=== PATIENT | male | born 1945 | race Caucasian/White ===

== ENCOUNTER 2018-06-21 07:05 | Day surgery (SDC) | payer MEDICARE ==
[2018-06-20 09:37] VITALS: BMI 29.8
[~2018-06-21 07:05] MED LIST: LACTATED RINGERS 1,000 ML IV SCH; LIDOCAINE 1% 20 ML VIAL (10MG/ML) FOR IV START INTRADERMA PRN
[2018-06-21 07:51] VITALS: RESP 18; TEMP 97.8
[2018-06-21] MEDS ORDERED: LACTATED RINGERS 1,000 ML IV ONE (07:51)
[2018-06-21 07:59] LABS: Glucose,Whole Blood 123 mg/dL (75-99)
[2018-06-21] MEDS ORDERED: PROPOFOL 10 MG/ML 20 ML VIAL IV ONE (08:32)
[2018-06-21] MEDS ORDERED: LIDOCAINE 1% INJ 10MG/ML (20 ML MDV) ONE (08:32)
--- NOTE | 2018-06-21 08:53 | P.PCN ---
Date of Procedure: 06/21/18 Procedure(s) Performed: Procedure: Total colonoscopy. Preoperative diagnosis: Screening for neoplasia. Postoperative diagnosis: Mild sigmoid diverticulosis with no evidence of acute diverticulitis, pictures, polyps or cancer. Preparation: HalfLytely prep. Sedation: Was provided by anesthesia. Brief clinical history: The patient is a 72-year-old male who is scheduled for this evaluation for screening for neoplasia age being his risk factor. He had a prior exam in 2008. No family history of colon cancer. The patient has no abdominal complaints, bleeding or anemia. Procedure: With the patient on his left lateral decubitus position and after informed consent and adequate sedation, the perianal area was inspected and it did not show any fissures or fistulas. There were no masses felt on digital rectal examination. The Olympus CFH 190L video colonoscope was then inserted in the rectum in the usual fashion and advanced to the cecum. There were few diverticular orifices seen scattered in the sigmoid with no evidence of acute diverticulitis or strictures. The mucosa appeared healthy. No polyps or tumors were seen or other pathology. I retroflexed the endoscope in the rectum before the endoscope was withdrawn. The patient tolerated the procedure well. Plan: The patient was reassured. Discussed dietary measures. He will follow up with you as planned. At his age, I did not recommend repeat exam in 10 years. This can be decided based on his overall health at that time. He will discuss that with you.
[2018-06-21 09:14] VITALS: BP 136/80; PULSE 54
== END 2018-06-21 09:24 | disposition home or self-care (01) ==
LOC: ORWHC2ENDO 07:05
DX: Z12.11 Encounter for screening for malignant neoplasm of colon (principal); K57.30 Diverticulosis of large intestine without perforation or abscess without bleeding; E11.9 Type 2 diabetes mellitus without complications; F41.9 Anxiety disorder, unspecified; F32.9 Major depressive disorder, single episode, unspecified; Z88.0 Allergy status to penicillin; Z79.899 Other long term (current) drug therapy; Z79.4 Long term (current) use of insulin; Z88.4 Allergy status to anesthetic agent
CPT/HCPCS: J2001; J2704; G0121; 45378

== ENCOUNTER 2018-12-31 11:43 | Emergency (ER) | payer MEDICARE ==
[2018-12-31 11:55] VITALS: RESP 18
[2018-12-31 12:01] LABS: Glucose,Whole Blood 365 mg/dL (75-99)
[2018-12-31] MEDS ORDERED: SODIUM CHLORIDE 0.9% 500 ML 500 ML IV STA (12:12)
[2018-12-31] MEDS ORDERED: SODIUM CHLORIDE 0.9% 1,000 ML IV STA (12:12)
[2018-12-31] MEDS ORDERED: INSULIN REGULAR 100 UNIT/ML VIAL IV ONE ×2 (12:13→12:58)
[2018-12-31 12:45] LABS: Appearance,Urine Clear (Clear); Bilirubin,Urine Negative (Negative); Blood,Urine Negative (Negative); Color,Urine Yellow; Glucose,Urine (UA) 4+ (Negative); Ketones,Urine Negative (Negative); Leukocyte Esterase,Urine Negative (Negative); Nitrite,Urine Negative (Negative); PH, Urine 5.5 (5.0-8.0); Protein,Urine Negative (Negative); Specific Gravity,Urine 1.023 (1.001-1.035); Urobilinogen,Urine <2.0 mg/dL (<2.0)
[2018-12-31 12:58] LABS: Glucose,Whole Blood 351 mg/dL (75-99)
[2018-12-31 13:04] LABS: Basophils % (A) 0 %; Eosinophils % (A) 1 %; HCT 43.7 % (39.0-53.0); HGB 15.2 gm/dL (13.0-17.5); Lymphocytes % (A) 13 %; MCHC 34.9 g/dL (31.0-37.0); MCV 88.8 fL (80.0-100.0); Mean Platelet Volume 6.6; Monocytes # (A) 0.4 k/uL (0-1.0); Monocytes % (A) 5 %; Neutrophils % (A) 80 %; Platelet Count 122 k/uL (150-450); RBC 4.92 m/uL (4.30-5.90); RDW 13.1 % (11.5-15.5); WBC 7.5 k/uL (3.8-10.6)
--- NOTE | 2018-12-31 13:05 | ED ---
General Adult HPI - General Source: patient, RN notes reviewed Mode of arrival: ambulatory Limitations: no limitations <Henok Bradshaw - Last Filed: 12/31/18 13:49> <Haresh Lennon - Last Filed: 12/31/18 16:34> - General Chief complaint: Recheck/Abnormal Lab/Rx Stated complaint: high blood sugar Time Seen by Provider: 12/31/18 11:58 - History of Present Illness Initial comments: This a 73-year-old male presents emergency Department chief complaint of hyperglycemia. Patient states that he was started on steroids by his PCPs office on Monday. Patient states that his blood sugar has been elevated higher than usual. He states it's been anywhere from 200-400. Patient states he did eat breakfast is want to cause medications as normal. He denies any specific complaints other than he felt slightly lightheaded earlier but that all resolved. Denies chest pain, shortness breath, nausea, vomiting, diarrhea c onstipation. No recent fevers chills (Henok Bradshaw) - Related Data Home Medications Medication Instructions Recorded Confirmed Escitalopram [Lexapro] 10 mg PO HS 06/20/18 06/20/18 Insulin Glargine [Lantus] 9 unit SQ HS 06/20/18 06/20/18 Multivitamins, Thera [Multivitamin 1 tab PO DAILY 06/20/18 06/20/18 (formulary)] Pioglitazone [Actos] 15 mg PO 1200 06/20/18 06/20/18 Repaglinide [Prandin] 1 mg PO AC-BID 06/20/18 06/20/18 Allergies Allergy/AdvReac Type Severity Reaction Status Date / Time amoxicillin Allergy Itching Verified 06/20/18 09:08 Review of Systems ROS Other: All systems not noted in ROS Statement are negative. <Henok Bradshaw - Last Filed: 12/31/18 13:49> ROS Other: All systems not noted in ROS Statement are negative. <Haresh Lennon - Last Filed: 12/31/18 16:34> ROS Statement: Those systems with pertinent positive or pertinent negative responses have been documented in the HPI. Past Medical History Past Medical History: Cancer, Diabetes Mellitus, Hyperlipidemia, Syncope Additional Past Medical History / Comment(s): Skin cancer- face, back and arm. States SOB when lying flat. History of Any Multi-Drug Resistant Organisms: None Reported Past Surgical History: Orthopedic Surgery, Tonsillectomy Additional Past Surgical History / Comment(s): R finger surgery. Cataract surgery. Additional Past Anesthesia/Blood Transfusion Reaction / Comment(s): States does not take much anesthesia to put me to sleep. Past Psychological History: Anxiety Smoking Status: Never smoker Past Alcohol Use History: None Reported Past Drug Use History: None Reported - Past Family History Father Family Medical History: Cancer Additional Family Medical History / Comment(s): Brain Sister(s) Family Medical History: Cancer Additional Family Medical History / Comment(s): Thyroid <Henok Bradshaw - Last Filed: 12/31/18 13:49> General Exam Limitations: no limitations General appearance: alert, in no apparent distress Head exam: Present: atraumatic, normocephalic, normal inspection Eye exam: Present: normal appearance, PERRL, EOMI. Absent: scleral icterus, conjunctival injection, periorbital swelling ENT exam: Present: normal exam, mucous membranes moist Neck exam: Present: normal inspection, full ROM. Absent: tenderness, meningismus, lymphadenopathy Respiratory exam: Present: normal lung sounds bilaterally. Absent: respiratory distress, wheezes, rales, rhonchi, stridor Cardiovascular Exam: Present: regular rate, normal rhythm, normal heart sounds. Absent: systolic murmur, diastolic murmur, rubs, gallop, clicks GI/Abdominal exam: Present: soft, normal bowel sounds. Absent: distended, tenderness, guarding, rebound, rigid Neurological exam: Present: alert, oriented X3, CN II-XII intact, reflexes normal. Absent: motor sensory deficit Skin exam: Present: warm, dry, intact, normal color. Absent: rash <Henok Bradshaw - Last Filed: 12/31/18 13:49> Course <Haresh Lennon - Last Filed: 12/31/18 16:34> Vital Signs 12/31/18 12/31/18 11:53 14:05 Temperature 97.6 F 98.4 F Pulse Rate 72 58 L Respiratory 18 18 Rate Blood Pressure 120/64 107/67 O2 Sat by Pulse 94 L 97 Oximetry - Reevaluation(s) Reevaluation #1: 12/31/18 16:33 ET tube.: Persistent evaluation this case and do agree with the assessment and plan. Patient did have hyperglycemia and has corrected. (Haresh Lennon) Medical Decision Making - Lab Data Result diagrams: 12/31/18 12:20 12/31/18 12:20 <Henok Bradshaw - Last Filed: 12/31/18 13:49> - Lab Data Result diagrams: 12/31/18 12:20 12/31/18 12:20 <Haresh Lennon - Last Filed: 12/31/18 16:34> - Medical Decision Making Patient was sugar was almost 400 in the emergency department. Patient was given IV insulin, IV fluids and electrolytes were checked with no acute findings. Urinalysis shows 4+ glucose. Patient has hyperglycemia related to steroid use and dietary reasons. We discussed a very Strict diabetic diet. Return parameters were discussed. (Henok Bradshaw) - Lab Data Lab Results 12/31/18 12/31/18 12/31/18 Range/Units 11:52 12:20 12:20 WBC 7.5 (3.8-10.6) k/uL RBC 4.92 (4.30-5.90) m/uL Hgb 15.2 (13.0-17.5) gm/dL Hct 43.7 (39.0-53.0) % MCV 88.8 (80.0-100.0) fL MCH 31.0 (25.0-35.0) pg MCHC 34.9 (31.0-37.0) g/dL RDW 13.1 (11.5-15.5) % Plt Count 122 L (150-450) k/uL Neutrophils % 80 % Lymphocytes % 13 % Monocytes % 5 % Eosinophils % 1 % Basophils % 0 % Neutrophils # 6.0 (1.3-7.7) k/uL Lymphocytes # 1.0 (1.0-4.8) k/uL Monocytes # 0.4 (0-1.0) k/uL Eosinophils # 0.0 (0-0.7) k/uL Basophils # 0.0 (0-0.2) k/uL Sodium 137 (137-145) mmol/L Potassium 4.7 (3.5-5.1) mmol/L Chloride 102 (98-107) mmol/L Carbon Dioxide 23 (22-30) mmol/L Anion Gap 12 mmol/L BUN 22 H (9-20) mg/dL Creatinine 0.77 (0.66-1.25) mg/dL Est GFR (CKD-EPI)AfAm >90 (>60 ml/min/1.73 sqM) Est GFR (CKD-EPI)NonAf 89 (>60 ml/min/1.73 sqM) Glucose 393 H (74-99) mg/dL POC Glucose (mg/dL) 365 H (75-99) mg/dL POC Glu Aboriginal Education Teacher ID Ann Robles Calcium 9.9 (8.4-10.2) mg/dL Total Bilirubin 0.6 (0.2-1.3) mg/dL AST 32 (17-59) U/L ALT 26 (21-72) U/L Alkaline Phosphatase 58 (38-126) U/L Total Protein 7.4 (6.3-8.2) g/dL Albumin 4.2 (3.5-5.0) g/dL Lipase 203 (23-300) U/L Urine Color Urine Appearance (Clear) Urine pH (5.0-8.0) Ur Specific [place] (1.001-1.035) Urine Protein (Negative) Urine Glucose (UA) (Negative) Urine Ketones (Negative) Urine Blood (Negative) Urine Nitrite (Negative) Urine Bilirubin (Negative) Urine Urobilinogen (<2.0) mg/dL Ur Leukocyte Esterase (Negative) Acetone, Qual (Negative) 12/31/18 12/31/18 12/31/18 Range/Units 12:20 12:24 12:55 WBC (3.8-10.6) k/uL RBC (4.30-5.90) m/uL Hgb (13.0-17.5) gm/dL Hct (39.0-53.0) % MCV (80.0-100.0) fL MCH (25.0-35.0) pg MCHC (31.0-37.0) g/dL RDW (11.5-15.5) % Plt Count (150-450) k/uL Neutrophils % % Lymphocytes % % Monocytes % % Eosinophils % % Basophils % % Neutrophils # (1.3-7.7) k/uL Lymphocytes # (1.0-4.8) k/uL Monocytes # (0-1.0) k/uL Eosinophils # (0-0.7) k/uL Basophils # (0-0.2) k/uL Sodium (137-145) mmol/L Potassium (3.5-5.1) mmol/L Chloride (98-107) mmol/L Carbon Dioxide (22-30) mmol/L Anion Gap mmol/L BUN (9-20) mg/dL Creatinine (0.66-1.25) mg/dL Est GFR (CKD-EPI)AfAm (>60 ml/min/1.73 sqM) Est GFR (CKD-EPI)NonAf (>60 ml/min/1.73 sqM) Glucose (74-99) mg/dL POC Glucose (mg/dL) 351 H (75-99) mg/dL POC Glu Aboriginal Education Teacher ID Barber Martinez Calcium (8.4-10.2) mg/dL Total Bilirubin (0.2-1.3) mg/dL AST (17-59) U/L ALT (21-72) U/L Alkaline Phosphatase (38-126) U/L Total Protein (6.3-8.2) g/dL Albumin (3.5-5.0) g/dL Lipase (23-300) U/L Urine Color Yellow Urine Appearance Clear (Clear) Urine pH 5.5 (5.0-8.0) Ur Specific [place] 1.023 (1.001-1.035) Urine Protein Negative (Negative) Urine Glucose (UA) 4+ H (Negative) Urine Ketones Negative (Negative) Urine Blood Negative (Negative) Urine Nitrite Negative (Negative) Urine Bilirubin Negative (Negative) Urine Urobilinogen <2.0 (<2.0) mg/dL Ur Leukocyte Esterase Negative (Negative) Acetone, Qual Negative (Negative) 12/31/18 Range/Units 13:43 WBC (3.8-10.6) k/uL RBC (4.30-5.90) m/uL Hgb (13.0-17.5) gm/dL Hct (39.0-53.0) % MCV (80.0-100.0) fL MCH (25.0-35.0) pg MCHC (31.0-37.0) g/dL RDW (11.5-15.5) % Plt Count (150-450) k/uL Neutrophils % % Lymphocytes % % Monocytes % % Eosinophils % % Basophils % % Neutrophils # (1.3-7.7) k/uL Lymphocytes # (1.0-4.8) k/uL Monocytes # (0-1.0) k/uL Eosinophils # (0-0.7) k/uL Basophils # (0-0.2) k/uL Sodium (137-145) mmol/L Potassium (3.5-5.1) mmol/L Chloride (98-107) mmol/L Carbon Dioxide (22-30) mmol/L Anion Gap mmol/L BUN (9-20) mg/dL Creatinine (0.66-1.25) mg/dL Est GFR (CKD-EPI)AfAm (>60 ml/min/1.73 sqM) Est GFR (CKD-EPI)NonAf (>60 ml/min/1.73 sqM) Glucose (74-99) mg/dL POC Glucose (mg/dL) 252 H (75-99) mg/dL POC Glu Aboriginal Education Teacher ID Barber Martinez Calcium (8.4-10.2) mg/dL Total Bilirubin (0.2-1.3) mg/dL AST (17-59) U/L ALT (21-72) U/L Alkaline Phosphatase (38-126) U/L Total Protein (6.3-8.2) g/dL Albumin (3.5-5.0) g/dL Lipase (23-300) U/L Urine Color Urine Appearance (Clear) Urine pH (5.0-8.0) Ur Specific [place] (1.001-1.035) Urine Protein (Negative) Urine Glucose (UA) (Negative) Urine Ketones (Negative) Urine Blood (Negative) Urine Nitrite (Negative) Urine Bilirubin (Negative) Urine Urobilinogen (<2.0) mg/dL Ur Leukocyte Esterase (Negative) Acetone, Qual (Negative) Disposition Is patient prescribed a controlled substance at d/c from ED?: No Time of Disposition: 13:50 <Henok Bradshaw - Last Filed: 12/31/18 13:49> <Haresh Lennon - Last Filed: 12/31/18 16:34> Clinical Impression: Hyperglycemia Disposition: HOME SELF-CARE Condition: Stable Instructions (If sedation given, give patient instructions): Diabetic Hyperglycemia (ED) Additional Instructions: Please return to the Emergency Department if symptoms worsen or any other concerns. Referrals: Sinan Ortiz DO [Primary Care Provider] - 1-2 days
[2018-12-31 13:10] LABS: ALT 26 U/L (21-72); AST 32 U/L (17-59); African American GFR (CKD) >90 (>60 ml/min/1.73 sqM); Albumin 4.2 g/dL (3.5-5.0); Alkaline Phosphatase 58 U/L (38-126); Anion Gap 12 mmol/L; Blood Urea Nitrogen 22 mg/dL (9-20); Calcium 9.9 mg/dL (8.4-10.2); Carbon Dioxide 23 mmol/L (22-30); Chloride 102 mmol/L (98-107); Glucose 393 mg/dL (74-99); Potassium 4.7 mmol/L (3.5-5.1); Sodium 137 mmol/L (137-145); Total Bilirubin 0.6 mg/dL (0.2-1.3); Total Protein 7.4 g/dL (6.3-8.2)
[2018-12-31 13:45] LABS: Glucose,Whole Blood 252 mg/dL (75-99)
[2018-12-31 14:07] VITALS: BP 107/67; PULSE 58; TEMP 98.4
== END 2018-12-31 14:07 | disposition home or self-care (01) ==
LOC: EC 11:43
DX: E11.65 Type 2 diabetes mellitus with hyperglycemia (principal); F41.9 Anxiety disorder, unspecified; Z85.828 Personal history of other malignant neoplasm of skin; Z79.4 Long term (current) use of insulin; Z79.899 Other long term (current) drug therapy; Z88.0 Allergy status to penicillin
CPT/HCPCS: 36415; 80053; 81003; 82009; 83690; 85025; 96360; 99283

== ENCOUNTER → 2019-03-12 | Outpatient (CLI) | payer MEDICARE ==
--- NOTE | 2019-03-12 16:32 | CONS ---
CONSULTATION REASON FOR CONSULTATION: Insomnia. This is a 73-year-old retired male patient who lives in [place]. The patient is coming with the chief complaint of inability to go to sleep. He has been having this issue for almost 15 years. Since he retired, his sleep schedule has been significantly off, as the patient is going to bed at around 11 p.m. to midnight and the patient is unable to fall asleep; he ultimately falls asleep around 3 to 4 a.m. in the morning. By 6 or 7 a.m. he is awakened by his , as the patient is noted to have some increased, unusual aggressive behavior where he yells and swings and becomes somewhat aggressive. This is typically occurring around 3 times a week. He has not inflicted any injuries to himself or to his bed partner, his . After is aroused he goes back to sleep and he ultimately gets out of bed around 11:00 or noontime. As such, the patient is spending a total of 11 or 12 hours in bed, not necessarily sleeping at all times. He snores. He feels that his nose gets plugged up and occasionally he wakes up in the middle of the night with that sensation. He has body aches and he has been taking Tylenol, which improves his symptoms. He seems to be restless at nighttime, mainly due to his arthritic pain that affects his lower extremities. His symptoms are not typical of RLS. During the day he may take a nap if he feels tired or sleepy. Note that with his disturbed sleep schedule, the patient has breakfast at around noontime, then he has lunch around 2:30 p.m., and dinner is around 6:00. No head trauma. No Parkinson's disease. No dementia. No issues with memory or concentration. He has been noted to talk 3-4 hours into sleep and become quite restless. This is based on the description that was given by his . He has been diagnosed having anxiety/panic and he was started on Lexapro; he is taking 10 mg half a tablet a day. He is diabetic. No other cardiovascular diseases in this patient. He is able to drive his car. No history of any motor vehicle accident because of feeling drowsy or sleepy. The daytime [place] score is 10. PAST MEDICAL HISTORY: Anxiety/panic and diabetes mellitus. SURGICAL HISTORY: Negative. DRUG ALLERGIES: PENICILLIN. OUTPATIENT MEDICATION LIST: Outpatient medication list includes: 1. Lexapro 10 mg half tablet a day. 2. Pioglitazone 30 mg p.o. daily. 3. Repaglinide 1 mg p.o. daily. 4. Ammonium lactate solution 12%. 5. Multivitamin. SOCIAL HISTORY: Nonsmoker. No history of alcoholism. No history of IV drugs. He is retired. FAMILY HISTORY: Negative for sleep apnea. REVIEW OF SYSTEMS: Fourteen-point review of system was done and the positive findings are all mentioned above in the history of present illness. PHYSICAL EXAMINATION: VITAL SIGNS: BP is 129/68, pulse 88, respirations 16, temperature 97.5, saturation 96% on room air. Height 5 feet 11 inches, weight 233, BMI 32. Neck size 16-1/2 inches. GENERAL APPEARANCE: Calm, comfortable. HEAD: Atraumatic, normocephalic. NECK: Supple. Mallampati class IV. No goiter or neck masses. LUNGS: Clear to auscultation. HEART: Heart sounds are regular rate and rhythm. Normal S1, S2. No S3, S4. No murmurs. ABDOMEN: Soft, nontender. No organomegaly. EXTREMITIES: No edema. No cyanosis or clubbing. NEUROLOGIC: Awake and alert x3. No focal neurological deficits. PSYCHIATRIC: Negative for anxiety or depression. IMPRESSION: Sleep-onset insomnia along with chronic hypersomnia. This is related to several factors: A) delayed sleep phase syndrome, as the patient has shifted his sleep cycle to a later time during the day and he is spending more than 11 hours in bed, significantly affecting his overall sleep efficiency; B) possible REM behavioral disorder exacerbated further by the use of Lexapro; C) possible obstructive sleep apnea; D) comorbidities, including pain and possible nasal obstruction and chronic sinus disease affecting his sleep quality. PLAN: 1. Initial step will be to regulate this patient's sleep-wake cycle. It is very important for this patient to gradually shift back his sleep schedule to earlier times. I gave him instructions to gradually bring his time to wake up by one hour every week and his time to go to bed should be shifted accordingly. Would like to keep him only 7 hours in bed to improve his overall sleep efficiency and gradually move his sleep schedule to ultimately achieve a time where he is able to go to bed around midnight and get up at 7:00 in the morning. We discussed the importance of light stimulation, exercise, avoiding naps during the day, and keeping busy. Hopefully this should be able to gradually shift his sleep schedule to a desired time. 2. Will monitor symptoms of REM behavior disorder, and if they remain quite active, will make the bedroom environment safer and gradually wean him off the Lexapro and consider the addition of melatonin or clonazepam to suppress these symptoms. 3. Will consider screening polysomnogram once the patient's sleep schedule is further regulated. The patient is going to maintain a sleep diary and the patient will see me back in followup in 6 weeks' time. If sleep is further much regulated, we are going to proceed with a screening polysomnogram. MMSONALL / IJN: [id number] /
== END | disposition home or self-care (01) ==
LOC: SLEEP 13:43
PROVIDERS: ATTEND Internal Medicine Critical Care Medicine
DX: G47.00 Insomnia, unspecified (principal); G47.21 Circadian rhythm sleep disorder, delayed sleep phase type; Z79.899 Other long term (current) drug therapy; Z88.0 Allergy status to penicillin
CPT/HCPCS: 99211

== ENCOUNTER → 2019-04-30 | Outpatient (CLI) | payer MEDICARE ==
--- NOTE | 2019-05-01 07:29 | PN ---
PROGRESS NOTE DATE OF SERVICE: 04/30/2019 This is a very pleasant 73-year-old gentleman who is returning to the [facility] after being seen initially by Dr. Etienne in February 2019 with complaints of disrupted sleep schedule. He had been having unusual aggressive behavior with yelling and screaming about at certain times in the morning. He has a diagnosis of anxiety/panic and has been initiated on Lexapro prior to being seen here. He has signs and symptoms of restless legs syndrome. After his initial consultation, he was requested to keep a sleep schedule which he brought with him today. He is going to bed at approximately midnight every night. However, he is waking up at 2 or 3 in the morning. His main issues that are waking him up are actually sinus congestion and drainage. He states his nose gets plugged, which wakens him from a sleep and then he gets up and sleeps in a lazy boy chair. He does utilize saline spray. He has not trialed any medications in the form of Claritin or Janelle for his sinus congestion. He is planning to see Dr. Feng in 2 weeks in this regard. PHYSICAL EXAMINATION: On physical exam, this is a very pleasant 73-year-old gentleman, awake and alert, in no acute distress. He is 5 feet 11-1/2 inches at 234 pounds with a BMI of 32. Blood pressure is 113/56, heart rate 74, respirations 16, temperature is 97.4. He is 96% O2 saturation on room air. His head is normocephalic, sclerae anicteric. His neck is supple. Trachea midline. His lungs are clear anterior and posteriorly. His heart is regular S1, S2. His abdomen is soft, nontender. Bowel sounds are present. No significant peripheral edema. No clubbing. No cyanosis. Peripheral pulses are intact. INVESTIGATIONS: The patient's sleep scheduled and symptomatology were reviewed. IMPRESSION: 1. Sleep onset insomnia along with chronic hypersomnia and possible REM behavioral disorder, possibly exacerbated by Lexapro. 2. Possible obstructive sleep apnea. 3. History of anxiety/panic attacks. 4. Diabetes mellitus. PLAN: The patient was seen and evaluated by Dr. Etienne. His sleep schedule was reviewed. It appears the patient's main symptoms are being awakened early in the morning at 3:00 to 4:00 with sinus congestion and drainage requiring him to sleep up in a lazy boy. No medications recommended at this time. He will see Dr. Feng in 2 weeks time and will address his sinus congestion and drainage. He will follow up with us in approximately 6 weeks and at that time, he may require a screening polysomnogram. Other thoughts were to eventually wean him off the Lexapro and consider the addition of melatonin or clonazepam to suppress some of his symptoms. He and his both verbalized understanding and are agreeable to the plan. I, the cosigning physician, performed a history and physical examination on the patient. Lung sounds are clear. Maintain O2 saturations in the 90s on room air. I discussed the assessment and plan of care with my nurse practitioner, Sima Dickerson. I attest to the above progress note as dictated by her. NUVIA / YU: [id number] /
== END | disposition home or self-care (01) ==
LOC: SLEEP 14:05
PROVIDERS: ATTEND Internal Medicine Critical Care Medicine
DX: Z53.9 Procedure and treatment not carried out, unspecified reason (principal)

== ENCOUNTER 2019-06-30 08:38 | Inpatient (IN) | payer MEDICARE ==
[2019-06-30] MEDS ORDERED: ONDANSETRON ODT 8 MG TAB.RAPDIS PO STA (08:57)
[2019-06-30] MEDS ORDERED: SODIUM CHLORIDE 0.9% 500 ML 500 ML IV STA (08:57)
[2019-06-30] MEDS ORDERED: HYDROmorphone 1 MG/ML 1 ML SYRINGE IVP STA (08:57)
--- NOTE | 2019-06-30 09:03 | ED ---
General Adult HPI - General Chief complaint: Chest Pain Stated complaint: fall/back pain Source: patient, RN notes reviewed, old records reviewed Mode of arrival: ambulatory Limitations: no limitations - History of Present Illness Initial comments: This is a 74-year-old male who presents to the emergency department complaining of left sided upper abdominal pain and rib pain. Patient states she fell on and landed on a 4 x 4 which was part of the wall and since then he's had pain there but yesterday he sneezed and now the pain is excruciating. Patient states any movement or deep breathing coughing or sneezing causes excruciating pain. Patient does not believe he is short of breath just hurts to breathe. Patient denies any anterior chest pain. Patient denies any nausea vomiting. Patient states any fever chills or cough. - Related Data Home Medications Medication Instructions Recorded Confirmed Escitalopram [Lexapro] 10 mg PO HS 06/20/18 06/30/19 Multivitamins, Thera [Multivitamin 1 tab PO DAILY 06/20/18 06/30/19 (formulary)] Repaglinide [Prandin] 0.5 mg PO AC-TID 06/20/18 06/30/19 Fluticasone Nasal [place] [Flonase 2 spr EA NOSTRIL DAILY 06/30/19 06/30/19 Nasal [place]] Pioglitazone HCl 15 mg PO DAILY 06/30/19 06/30/19 Allergies Allergy/AdvReac Type Severity Reaction Status Date / Time amoxicillin Allergy Itching Verified 06/30/19 10:05 Review of Systems ROS Statement: Those systems with pertinent positive or pertinent negative responses have been documented in the HPI. ROS Other: All systems not noted in ROS Statement are negative. Past Medical History Past Medical History: Cancer, Diabetes Mellitus, Hyperlipidemia, Syncope Additional Past Medical History / Comment(s): Skin cancer- face, back and arm. States SOB when lying flat. History of Any Multi-Drug Resistant Organisms: None Reported Past Surgical History: Orthopedic Surgery, Tonsillectomy Additional Past Surgical History / Comment(s): R finger surgery. Cataract surgery. Additional Past Anesthesia/Blood Transfusion Reaction / Comment(s): States does not take much anesthesia to put me to sleep. Past Psychological History: Anxiety Smoking Status: Never smoker Past Alcohol Use History: None Reported Past Drug Use History: None Reported - Past Family History Father Family Medical History: Cancer Additional Family Medical History / Comment(s): Brain Sister(s) Family Medical History: Cancer Additional Family Medical History / Comment(s): Thyroid General Exam - General Exam Comments Initial Comments: GENERAL: Patient is well-developed and well-nourished. Patient is nontoxic and well- hydrated and is in moderate distress. ENT: Neck is soft and supple. No significant lymphadenopathy is noted. Oropharynx is clear. Moist mucous membranes. Neck has full range of motion without eliciting any pain. EYES: The sclera were anicteric and conjunctiva were pink and moist. Extraocular movements were intact and pupils were equal round and reactive to light. Eyelids were unremarkable. PULMONARY: Unlabored respirations. Good breath sounds bilaterally. No audible rales rhonchi or wheezing was noted. CARDIOVASCULAR: There is a regular rate and rhythm without any murmurs gallops or rubs. Patient has left anterolateral rib pain at the 12th and 11th rib ABDOMEN: Patient has left upper quadrant abdominal tenderness SKIN: Skin is clear with no lesions or rashes and otherwise unremarkable. NEUROLOGIC: Patient is alert and oriented x3. Cranial nerves II through XII are grossly intact. Motor and sensory are also intact. Normal speech, volume and content. Symmetrical smile. MUSCULOSKELETAL: Normal extremities with adequate strength and full range of motion. No lower extremity swelling or edema. No calf tenderness. LYMPHATICS: No significant lymphadenopathy is noted PSYCHIATRIC: Normal psychiatric evaluation. Limitations: no limitations Course Vital Signs 06/30/19 06/30/19 06/30/19 08:44 09:22 09:40 Temperature 98.1 F Pulse Rate 73 86 Respiratory 18 24 16 Rate Blood Pressure 135/78 136/89 O2 Sat by Pulse 95 99 Oximetry Medical Decision Making - Medical Decision Making CT shows 2 posterior rib fractures that are displaced with possible hemothorax or just an effusion. Patient is too uncomfortable to go home. I spoke with Dr. Denise he agreed to admit the patient admitted the patient I wrote admitting orders and consult with Dr. Schroeder - Lab Data Result diagrams: 06/30/19 09:38 06/30/19 09:38 Lab Results 06/30/19 06/30/19 06/30/19 Range/Units 09:38 09:38 09:38 WBC 5.1 (3.8-10.6) k/uL RBC 4.85 (4.30-5.90) m/uL Hgb 15.0 (13.0-17.5) gm/dL Hct 43.3 (39.0-53.0) % MCV 89.3 (80.0-100.0) fL MCH 30.9 (25.0-35.0) pg MCHC 34.7 (31.0-37.0) g/dL RDW 13.4 (11.5-15.5) % Plt Count 125 L (150-450) k/uL Neutrophils % 64 % Lymphocytes % 23 % Monocytes % 7 % Eosinophils % 3 % Basophils % 1 % Neutrophils # 3.3 (1.3-7.7) k/uL Lymphocytes # 1.2 (1.0-4.8) k/uL Monocytes # 0.3 (0-1.0) k/uL Eosinophils # 0.1 (0-0.7) k/uL Basophils # 0.0 (0-0.2) k/uL PT 10.3 (9.0-12.0) sec INR 1.0 (<1.2) APTT 23.4 (22.0-30.0) sec Sodium 136 L (137-145) mmol/L Potassium 4.5 (3.5-5.1) mmol/L Chloride 106 (98-107) mmol/L Carbon Dioxide 21 L (22-30) mmol/L Anion Gap 9 mmol/L BUN 21 H (9-20) mg/dL Creatinine 0.73 (0.66-1.25) mg/dL Est GFR (CKD-EPI)AfAm >90 (>60 ml/min/1.73 sqM) Est GFR (CKD-EPI)NonAf >90 (>60 ml/min/1.73 sqM) Glucose 155 H (74-99) mg/dL Calcium 9.5 (8.4-10.2) mg/dL Total Bilirubin 0.6 (0.2-1.3) mg/dL AST 36 (17-59) U/L ALT 24 (4-49) U/L Alkaline Phosphatase 50 (38-126) U/L Total Protein 7.6 (6.3-8.2) g/dL Albumin 4.2 (3.5-5.0) g/dL Amylase 52 (30-110) U/L Lipase 240 (23-300) U/L Urine Color Urine Appearance (Clear) Urine pH (5.0-8.0) Ur Specific [place] (1.001-1.035) Urine Protein (Negative) Urine Glucose (UA) (Negative) Urine Ketones (Negative) Urine Blood (Negative) Urine Nitrite (Negative) Urine Bilirubin (Negative) Urine Urobilinogen (<2.0) mg/dL Ur Leukocyte Esterase (Negative) 06/30/19 Range/Units 09:38 WBC (3.8-10.6) k/uL RBC (4.30-5.90) m/uL Hgb (13.0-17.5) gm/dL Hct (39.0-53.0) % MCV (80.0-100.0) fL MCH (25.0-35.0) pg MCHC (31.0-37.0) g/dL RDW (11.5-15.5) % Plt Count (150-450) k/uL Neutrophils % % Lymphocytes % % Monocytes % % Eosinophils % % Basophils % % Neutrophils # (1.3-7.7) k/uL Lymphocytes # (1.0-4.8) k/uL Monocytes # (0-1.0) k/uL Eosinophils # (0-0.7) k/uL Basophils # (0-0.2) k/uL PT (9.0-12.0) sec INR (<1.2) APTT (22.0-30.0) sec Sodium (137-145) mmol/L Potassium (3.5-5.1) mmol/L Chloride (98-107) mmol/L Carbon Dioxide (22-30) mmol/L Anion Gap mmol/L BUN (9-20) mg/dL Creatinine (0.66-1.25) mg/dL Est GFR (CKD-EPI)AfAm (>60 ml/min/1.73 sqM) Est GFR (CKD-EPI)NonAf (>60 ml/min/1.73 sqM) Glucose (74-99) mg/dL Calcium (8.4-10.2) mg/dL Total Bilirubin (0.2-1.3) mg/dL AST (17-59) U/L ALT (4-49) U/L Alkaline Phosphatase (38-126) U/L Total Protein (6.3-8.2) g/dL Albumin (3.5-5.0) g/dL Amylase (30-110) U/L Lipase (23-300) U/L Urine Color Yellow Urine Appearance Clear (Clear) Urine pH 5.5 (5.0-8.0) Ur Specific [place] >1.050 H (1.001-1.035) Urine Protein Trace H (Negative) Urine Glucose (UA) Negative (Negative) Urine Ketones Negative (Negative) Urine Blood Negative (Negative) Urine Nitrite Negative (Negative) Urine Bilirubin Negative (Negative) Urine Urobilinogen <2.0 (<2.0) mg/dL Ur Leukocyte Esterase Negative (Negative) Disposition Clinical Impression: Fall, Rib fractures, Pleural effusion Disposition: ADMITTED IP TO THIS HOSP Referrals: Sinan Ortiz DO [Primary Care Provider] - 1-2 days Time of Disposition: 10:44
[2019-06-30 09:48] LABS: Basophils % (A) 1 %; Eosinophils # (A) 0.1 k/uL (0-0.7); Eosinophils % (A) 3 %; HCT 43.3 % (39.0-53.0); Lymphocytes # (A) 1.2 k/uL (1.0-4.8); Lymphocytes % (A) 23 %; MCH 30.9 pg (25.0-35.0); MCHC 34.7 g/dL (31.0-37.0); MCV 89.3 fL (80.0-100.0); Mean Platelet Volume 7.4; Monocytes # (A) 0.3 k/uL (0-1.0); Monocytes % (A) 7 %; Neutrophils # (A) 3.3 k/uL (1.3-7.7); Neutrophils % (A) 64 %; Platelet Count 125 k/uL (150-450); RBC 4.85 m/uL (4.30-5.90); RDW 13.4 % (11.5-15.5); WBC 5.1 k/uL (3.8-10.6)
--- NOTE | 2019-06-30 09:52 | CT ---
EXAMINATION TYPE: CT ChestAbdPelvis w con DATE OF EXAM: 06/30/2019 COMPARISON: Previous CTA of the chest dated 10/31/2014. HISTORY: Left sided chest and upper Abdominal pain. CT DLP: 1767.5 mGycm Automated exposure control for dose reduction was used. TECHNIQUE: Helical acquisition through the abdomen and pelvis was obtained without oral contrast but following the intravenous administration of 100 mL of Isovue 300. The data was formatted in the axia l, coronal and sagittal projections. FINDINGS: There is atelectatic change at the right lung base. There is a small area of consolidation in the posterior basal segment of the left lower lobe. There is a small left effusion. There is no significant axillary, mediastinal or hilar adenopathy. There is mild ectasia of the ascending thoracic aorta which was present previously. Maximal transvers e diameter is 3.7 cm. The heart is not enlarged. There is no pericardial fluid. There is a small, sliding hiatal hernia. Within the abdomen, the liver, spleen and gallbladder are normal. Both adrenal glands are normal. Both kidneys demonstrate function and appear morphologically normal. The pancreas is unremarkable. There is no significant retroperitoneal, iliac or inguinal adenopathy. The bladder is not distended. There is no significant diverticular change and there is no radiographic evidence of diverticulitis. The appendix is not visualized with certainty. Small bowel loops are of normal caliber. There is no free fluid and no free air. There is a bilateral lysis at L5 with a grade 1 spondylolisthesis of L5 on S1. There is facet arthrop athy, degenerative disc disease and hypertrophic spondylosis within the spine. IMPRESSION: 1. SMALL AREA OF LEFT BASILAR INFILTRATE WITH A SMALL ASSOCIATED EFFUSION. 2. MILD ECTASIA OF THE ASCENDING THORACIC AORTA. 3. SMALL, SLIDING HIATAL HERNIA. 4. BILATERAL LYSIS AT L5 WITH A GRADE 1 SPONDYLOLISTHESIS OF L5 ON S1.
[2019-06-30 09:59] LABS: ALT 24 U/L (4-49); AST 36 U/L (17-59); African American GFR (CKD) >90 (>60 ml/min/1.73 sqM); Albumin 4.2 g/dL (3.5-5.0); Alkaline Phosphatase 50 U/L (38-126); Amylase 52 U/L (30-110); Anion Gap 9 mmol/L; Blood Urea Nitrogen 21 mg/dL (9-20); Calcium 9.5 mg/dL (8.4-10.2); Carbon Dioxide 21 mmol/L (22-30); Chloride 106 mmol/L (98-107); Glucose 155 mg/dL (74-99); Non-African American GFR(CKD) >90 (>60 ml/min/1.73 sqM); Potassium 4.5 mmol/L (3.5-5.1); Sodium 136 mmol/L (137-145); Total Bilirubin 0.6 mg/dL (0.2-1.3); Total Protein 7.6 g/dL (6.3-8.2)
[2019-06-30 10:01] LABS: Appearance,Urine Clear (Clear); Bilirubin,Urine Negative (Negative); Blood,Urine Negative (Negative); Color,Urine Yellow; Glucose,Urine (UA) Negative (Negative); Ketones,Urine Negative (Negative); Leukocyte Esterase,Urine Negative (Negative); Nitrite,Urine Negative (Negative); PH, Urine 5.5 (5.0-8.0); Protein,Urine Trace (Negative); Urobilinogen,Urine <2.0 mg/dL (<2.0)
[2019-06-30 10:05] LABS: Partial Thromboplastin Time 23.4 sec (22.0-30.0); Prothrombin Time 10.3 sec (9.0-12.0)
[2019-06-30 10:10] LABS: Specific Gravity,Urine >1.050 (1.001-1.035)
[2019-06-30] MEDS ORDERED: SODIUM CHLORIDE 0.9% 1,000 ML IV ONE (10:44)
[2019-06-30] MEDS ORDERED: HYDROmorphone 0.5 MG/0.5 ML SYRINGE IVP PRN (10:45)
[2019-06-30 11:55] LABS: Glucose,Whole Blood 172 mg/dL (75-99)
[2019-06-30] MEDS: KETOROLAC 30 MG/ML 1 ML VIAL IVP SCH ×2 (12:02→17:49)
--- NOTE | 2019-06-30 14:16 | P.GSHP ---
History of Present Illness H&P Date: 06/30/19 Chief Complaint: Left rib pain This a 74-year-old male who had a fall in a routine yesterday. Patient states he fell backwards and struck his back against a 2 x 4. Patient's complaints of left upper quadrant pain. Patient was seen in the emergency room and worked up. His CAT scan shows evidence of posterior rib fractures in the 11th and 12th rib. There is also possibility of left lower lobe atelectasis. Past Medical History Past Medical History: Cancer, Diabetes Mellitus, Hyperlipidemia, Syncope Additional Past Medical History / Comment(s): Skin cancer- face, back and arm. States SOB when lying flat. History of Any Multi-Drug Resistant Organisms: None Reported Past Surgical History: Orthopedic Surgery, Tonsillectomy Additional Past Surgical History / Comment(s): R finger surgery. Cataract surgery. Additional Past Anesthesia/Blood Transfusion Reaction / Comment(s): States does not take much anesthesia to put me to sleep. Past Psychological History: Anxiety Smoking Status: Never smoker Past Alcohol Use History: None Reported Past Drug Use History: None Reported - Past Family History Father Family Medical History: Cancer Additional Family Medical History / Comment(s): Brain Sister(s) Family Medical History: Cancer Additional Family Medical History / Comment(s): Thyroid Medications and Allergies Home Medications Medication Instructions Recorded Confirmed Type Escitalopram [Lexapro] 10 mg PO HS 06/20/18 06/30/19 History Multivitamins, Thera [Multivitamin 1 tab PO DAILY 06/20/18 06/30/19 History (formulary)] Repaglinide [Prandin] 0.5 mg PO AC-TID 06/20/18 06/30/19 History Fluticasone Nasal [place] [Flonase 2 spr EA NOSTRIL DAILY 06/30/19 06/30/19 History Nasal [place]] Pioglitazone HCl 15 mg PO DAILY 06/30/19 06/30/19 History Allergies Allergy/AdvReac Type Severity Reaction Status Date / Time amoxicillin Allergy Itching Verified 06/30/19 10:05 Surgical - Exam Vital Signs Temp Pulse Resp BP Pulse Ox 98.1 F 73 18 135/78 95 06/30/19 08:44 06/30/19 08:44 06/30/19 08:44 06/30/19 08:44 06/30/19 08:44 - General well developed, well nourished, no distress - Eyes PERRL - ENT normal pinna - Neck no masses - Respiratory normal expansion - Cardiovascular Rhythm: regular - Abdomen Mild left upper quadrant tenderness, left flank tenderness Abdomen: soft Results - Labs 06/30/19 09:38 06/30/19 09:38 Abnormal Lab Results - Last 24 Hours (Table) 06/30/19 06/30/19 06/30/19 Range/Units 09:38 09:38 09:38 Plt Count 125 L (150-450) k/uL Sodium 136 L (137-145) mmol/L Carbon Dioxide 21 L (22-30) mmol/L BUN 21 H (9-20) mg/dL Glucose 155 H (74-99) mg/dL POC Glucose (mg/dL) (75-99) mg/dL Ur Specific [place] >1.050 H (1.001-1.035) Urine Protein Trace H (Negative) 06/30/19 Range/Units 11:54 Plt Count (150-450) k/uL Sodium (137-145) mmol/L Carbon Dioxide (22-30) mmol/L BUN (9-20) mg/dL Glucose (74-99) mg/dL POC Glucose (mg/dL) 172 H (75-99) mg/dL Ur Specific [place] (1.001-1.035) Urine Protein (Negative) Diabetes panel 06/30/19 Range/Units 09:38 Sodium 136 L (137-145) mmol/L Potassium 4.5 (3.5-5.1) mmol/L Chloride 106 (98-107) mmol/L Carbon Dioxide 21 L (22-30) mmol/L BUN 21 H (9-20) mg/dL Creatinine 0.73 (0.66-1.25) mg/dL Glucose 155 H (74-99) mg/dL Calcium 9.5 (8.4-10.2) mg/dL AST 36 (17-59) U/L ALT 24 (4-49) U/L Alkaline Phosphatase 50 (38-126) U/L Total Protein 7.6 (6.3-8.2) g/dL Albumin 4.2 (3.5-5.0) g/dL Calcium panel 06/30/19 Range/Units 09:38 Calcium 9.5 (8.4-10.2) mg/dL Albumin 4.2 (3.5-5.0) g/dL Pituitary panel 06/30/19 Range/Units 09:38 Sodium 136 L (137-145) mmol/L Potassium 4.5 (3.5-5.1) mmol/L Chloride 106 (98-107) mmol/L Carbon Dioxide 21 L (22-30) mmol/L BUN 21 H (9-20) mg/dL Creatinine 0.73 (0.66-1.25) mg/dL Glucose 155 H (74-99) mg/dL Calcium 9.5 (8.4-10.2) mg/dL Adrenal panel 06/30/19 Range/Units 09:38 Sodium 136 L (137-145) mmol/L Potassium 4.5 (3.5-5.1) mmol/L Chloride 106 (98-107) mmol/L Carbon Dioxide 21 L (22-30) mmol/L BUN 21 H (9-20) mg/dL Creatinine 0.73 (0.66-1.25) mg/dL Glucose 155 H (74-99) mg/dL Calcium 9.5 (8.4-10.2) mg/dL Total Bilirubin 0.6 (0.2-1.3) mg/dL AST 36 (17-59) U/L ALT 24 (4-49) U/L Alkaline Phosphatase 50 (38-126) U/L Total Protein 7.6 (6.3-8.2) g/dL Albumin 4.2 (3.5-5.0) g/dL - Imaging CT scan - abdomen: report reviewed (Posterior left rib fracture, atelectasis) Assessment and Plan Assessment: Left posterior rib fractures. Patient may have a small hematoma related to th is. He also may have a small palmar a contusion or atelectasis. 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
[2019-06-30 16:34] LABS: Glucose,Whole Blood 165 mg/dL (75-99)
[2019-06-30 20:08] LABS: Glucose,Whole Blood 151 mg/dL (75-99)
[2019-07-01] MEDS: KETOROLAC 30 MG/ML 1 ML VIAL IVP SCH ×2 (00:23→06:08)
[2019-07-01 05:44] VITALS: RESP 16
[2019-07-01 06:23] LABS: Glucose,Whole Blood 130 mg/dL (75-99)
[2019-07-01 08:36] VITALS: TEMP 97.3
--- NOTE | 2019-07-01 09:51 | P.CONS ---
History of Present Illness - History of Present Illness This is a pleasant 74 years old male with past medical history of diabetes me llitus, hyperlipidemia, syncope, anxiety. He is a patient of Dr. Ortiz. Patient presents because of fall and pain. 2-3 days ago he was working up until when he slipped on the stone and fell on his back to a board of wood, immediate on the floor for 3-5 minutes before he stood up and continue to work for about an hour, he has complaining from pain in his left lower chest posteriorly, his pain continued and he answered Monday came to emergency room. Patient denies any other pain, no dyspnea, no nausea vomiting. No abdominal pain, no change in urine or bowel habits. No fever Patient also has been having bouts problem whenever he goes upstairs or down stairs but not on straight floor, when he go downstairs he bumps into the sidewall, he follows up with Dr. Ortiz referred to Dr. Ferguson for ENT specialty, and his been scheduled for MRI of the brain at end of this month on the or as per patient. He is supposed to follow up with his PCP Dr. Ortiz on 07/02/2019 Vitas looks stable and labs reviewed and showing an unremarkable CBC and INR and liver enzymes. BMP is also unremarkable except for mild sodium of 136 and creatinine normal at 0.7. UA is not suspicious of infection Patient underwent CT of the chest, abdomen and pelvis with contrast, showing mildly displaced fractures of the ninth and 10th left ribs posteriorly in Emergency room patient received some IV fluids 500 L normal saline bolus, Zofran and pain management with Dilaudid and Toradol. Review of Systems CONSTITUTIONAL: No fever, no malaise, no fatigue. HEENT: No recent visual problems or hearing problems. Denied any sore throat. CARDIOVASCULAR: No orthopnea, PND, no palpitations, no syncope. PULMONARY: No shortness of breath, no cough, no hemoptysis. GASTROINTESTINAL: No diarrhea, no nausea, no vomiting, no abdominal pain. Normoactive bowel sounds. NEUROLOGICAL: No headaches, no weakness, no numbness. HEMATOLOGICAL: Denies any bleeding or petechiae. GENITOURINARY: Denies any burning micturition, frequency, or urgency. MUSCULOSKELETAL/RHEUMATOLOGICAL: Denies any joint pain, swelling, or any muscle pain. ENDOCRINE: Denies any polyuria or polydipsia. Past Medical History Past Medical History: Cancer, Diabetes Mellitus, Hyperlipidemia, Syncope Additional Past Medical History / Comment(s): Skin cancer- face, back and arm. States SOB when lying flat. History of Any Multi-Drug Resistant Organisms: None Reported Past Surgical History: Orthopedic Surgery, Tonsillectomy Additional Past Surgical History / Comment(s): R finger surgery. Cataract surgery. Past Anesthesia/Blood Transfusion Reactions: No Reported Reaction Additional Past Anesthesia/Blood Transfusion Reaction / Comm: States does not take much anesthesia to put me to sleep. Past Psychological History: Anxiety Smoking Status: Never smoker Past Alcohol Use History: None Reported Past Drug Use History: None Reported - Past Family History Father Family Medical History: Cancer Additional Family Medical History / Comment(s): Brain Sister(s) Family Medical History: Cancer Additional Family Medical History / Comment(s): Thyroid Medications and Allergies Home Medications Medication Instructions Recorded Confirmed Type Escitalopram [Lexapro] 10 mg PO HS 06/20/18 06/30/19 History Multivitamins, Thera [Multivitamin 1 tab PO DAILY 06/20/18 06/30/19 History (formulary)] Repaglinide [Prandin] 0.5 mg PO AC-TID 06/20/18 06/30/19 History Fluticasone Nasal [place] [Flonase 2 spr EA NOSTRIL DAILY 06/30/19 06/30/19 History Nasal [place]] Pioglitazone HCl 15 mg PO DAILY 06/30/19 06/30/19 History Allergies Allergy/AdvReac Type Severity Reaction Status Date / Time amoxicillin Allergy Itching Verified 06/30/19 10:05 Physical Exam Vitals: Vital Signs Temp Pulse Pulse Resp BP BP Pulse Ox 07/01/19 08:00 97.3 F L 70 16 126/68 94 L 07/01/19 04:00 97.7 F 63 16 132/70 94 L 07/01/19 00:00 97.5 F L 79 20 136/73 97 06/30/19 20:00 97.4 F L 68 18 145/67 95 06/30/19 15:00 97.4 F L 64 18 147/72 96 06/30/19 11:45 97.4 F L 63 18 153/78 95 06/30/19 10:49 79 16 129/78 98 06/30/19 09:40 86 16 136/89 99 06/30/19 09:22 24 Intake and Output 06/30/19 07/01/19 07/01/19 22:59 06:59 14:59 Intake Total 180 476 Output Total 800 600 Balance -620 -600 476 Intake: Oral 180 476 Output: Urine 800 600 Other: # Voids 2 Weight 103 kg GENERAL: The patient is alert and oriented x3, not in any acute distress. Well developed, well nourished. HEENT: Pupils are round and equally reacting to light. EOMI. No scleral icterus. No conjunctival pallor. Normocephalic, atraumatic. No pharyngeal erythema. No thyromegaly. CARDIOVASCULAR: S1 and S2 present. No murmurs, rubs, or gallops. PULMONARY: Chest is clear to auscultation, no wheezing or crackles. ABDOMEN: Soft, nontender, nondistended, normoactive bowel sounds. No palpable organomegaly. -MUSCULOSKELETAL: No joint swelling or deformity. Mild to moderate Tenderness in the left lower chest posteriorly EXTREMITIES: No cyanosis, clubbing, or pedal edema. NEUROLOGICAL: Gross neurological examination did not reveal any focal deficits. SKIN: No rashes. No petechiae -Gait: Walks normally but he has difficulty doing tandem gait Results CBC & Chem 7: 06/30/19 09:38 06/30/19 09:38 Labs: Abnormal Lab Results - Last 24 Hours (Table) 06/30/19 06/30/19 06/30/19 Range/Units 09:38 09:38 09:38 Plt Count 125 L (150-450) k/uL Sodium 136 L (137-145) mmol/L Carbon Dioxide 21 L (22-30) mmol/L BUN 21 H (9-20) mg/dL Glucose 155 H (74-99) mg/dL POC Glucose (mg/dL) (75-99) mg/dL Ur Specific [place] >1.050 H (1.001-1.035) Urine Protein Trace H (Negative) 06/30/19 06/30/19 06/30/19 Range/Units 11:54 16:32 20:07 Plt Count (150-450) k/uL Sodium (137-145) mmol/L Carbon Dioxide (22-30) mmol/L BUN (9-20) mg/dL Glucose (74-99) mg/dL POC Glucose (mg/dL) 172 H 165 H 151 H (75-99) mg/dL Ur Specific [place] (1.001-1.035) Urine Protein (Negative) 07/01/19 Range/Units 06:21 Plt Count (150-450) k/uL Sodium (137-145) mmol/L Carbon Dioxide (22-30) mmol/L BUN (9-20) mg/dL Glucose (74-99) mg/dL POC Glucose (mg/dL) 130 H (75-99) mg/dL Ur Specific [place] (1.001-1.035) Urine Protein (Negative) Assessment and Plan Assessment: Mildly displaced fractures of the left ninth and 10th ribs posteriorly, with associated left lower chest pain posteriorly Mild gait and a problem with Ongoing balance problem, he follow-up with ENT Dr. Ferguson and his PCP and he is scheduled for MRI of the brain end of this month Diabetes mellitus Hyperlipidemia Anxiety History of syncope Plan: This is a pleasant 74 years old male who presents with fall. Also he has left ninth and 10th rib fracture and left upper quadrant pain. Continue with pain management, pulmonary services been consulted Labs and medication were reviewed.. Continue same treatment. Continue with symptomatic treatment. Resume home medication. Monitor lytes and vitals. DVT and GI prophylaxis. Further recommendations of the clinical course of the patient DVT prophylaxis: Subcutaneous heparin GI Prophylaxis: Pepcid PT/OT: Pending Thank you for consulting us
[2019-07-01] MEDS ORDERED: HYDROcodone/APAP 5-325MG 1 EACH TAB PO PRN (11:24)
[2019-07-01 11:36] LABS: Glucose,Whole Blood 123 mg/dL (75-99)
[2019-07-01 11:45] VITALS: BP 117/55; PULSE 71
--- NOTE | 2019-07-01 12:04 | P.CNPUL ---
History of Present Illness Consult date: 06/30/19 Reason for consult: chest pain History of present illness: 76-year-old male patient with a fall and he presented emergency department complaining of a left sided upper abdominal pain and pelvic pain. The patient stated that he fell on which is 5 days ago and he landed on a 4 x 4 piece of wood which was part of the wall and since then has been having pain in his pain gradually got worse. He stated it. Pain upon deep breathing and sneezing and the pain was quite severe and for that reason he came into the hospital. No reported shortness of breath. No hemoptysis. No nausea. No vomiting. No head trauma. No fever. White cell count of 5.1. Hemoglobin is at 15 and the patient a normal coagulation profile and the rest of the blood work and electrolytes are all within normal limits. The UA was negative. The alvarez virus covid 19 nasal swab came back negative. The patient underwent CAT scan of the chest abdomen and pelvis and the patient was found to have a small area of left basilar infiltrate with a small effusion. There was mild ectasia of the ascending aorta. Small sliding hiatal hernia and bilateral lysis of the level of L5 and grade 1 spondylolisthesis of L5-S1. The patient also was found to have a displaced fracture of the ninth and the 10th rib posteriorly on the left without evidence of any pneumothorax. Review of Systems Constitutional: Denies chills, Denies fever Eyes: denies as per HPI, denies blurred vision, denies bulging eye, denies decreased vision, denies diplopia, denies discharge, denies dry eye, denies irritation, denies itching, denies pain, denies photophobia, denies loss of peripheral vision, denies loss of vision, denies tunnel vision/blind spots Ears: deny: decreased hearing, ear discharge, earache, tinnitus Ears, nose, mouth and throat: Denies headache, Denies sore throat Breasts: absent: as per HPI, gynecomastia Cardiovascular: Reports chest pain Respiratory: Denies cough Gastrointestinal: Reports as per HPI Genitourinary: Reports as per HPI Musculoskeletal: Reports as per HPI Musculoskeletal: absent: ankle pain, ankle stiffness, ankle swelling Integumentary: Reports as per HPI Neurological: Reports as per HPI Psychiatric: Reports as per HPI Endocrine: Reports as per HPI Hematologic/Lymphatic: Reports as per HPI Allergic/Immunologic: Reports as per HPI Past Medical History Past Medical History: Cancer, Diabetes Mellitus, Hyperlipidemia, Syncope Additional Past Medical History / Comment(s): Skin cancer- face, back and arm. States SOB when lying flat. History of Any Multi-Drug Resistant Organisms: None Reported Past Surgical History: Orthopedic Surgery, Tonsillectomy Additional Past Surgical History / Comment(s): R finger surgery. Cataract surgery. Past Anesthesia/Blood Transfusion Reactions: No Reported Reaction Additional Past Anesthesia/Blood Transfusion Reaction / Comment(s): States does not take much anesthesia to put me to sleep. Past Psychological History: Anxiety Smoking Status: Never smoker Past Alcohol Use History: None Reported Past Drug Use History: None Reported - Past Family History Father Family Medical History: Cancer Additional Family Medical History / Comment(s): Brain Sister(s) Family Medical History: Cancer Additional Family Medical History / Comment(s): Thyroid Medications and Allergies Home Medications Medication Instructions Recorded Confirmed Type Escitalopram [Lexapro] 10 mg PO HS 06/20/18 06/30/19 History Multivitamins, Thera [Multivitamin 1 tab PO DAILY 06/20/18 06/30/19 History (formulary)] Repaglinide [Prandin] 0.5 mg PO AC-TID 06/20/18 06/30/19 History Fluticasone Nasal [place] [Flonase 2 spr EA NOSTRIL DAILY 06/30/19 06/30/19 History Nasal [place]] Pioglitazone HCl 15 mg PO DAILY 06/30/19 06/30/19 History Hydrocodone/Acetaminophen [[place] 1 tab PO Q6HR PRN #10 tab 07/01/19 Rx 5-325] Allergies Allergy/AdvReac Type Severity Reaction Status Date / Time amoxicillin Allergy Itching Verified 06/30/19 10:05 Physical Exam Vitals: Vital Signs Temp Pulse Pulse Resp BP BP Pulse Ox 06/30/19 15:00 97.4 F L 64 18 147/72 96 06/30/19 11:45 97.4 F L 63 18 153/78 95 06/30/19 10:49 79 16 129/78 98 06/30/19 09:40 86 16 136/89 99 06/30/19 09:22 24 06/30/19 08:44 98.1 F 73 18 135/78 95 Intake and Output 06/30/19 06/30/19 06/30/19 06:59 14:59 22:59 Intake Total 390 180 Balance 390 180 Intake: Intake, IV Titration 150 Amount Sodium Chloride 0.9% 1, 150 000 ml @ 75 mls/hr IV . [id number] ONE Rx#:[id number] Oral 240 180 Other: # Voids 1 Weight 102.965 kg The patient appeared well nourished and normally developed. Vital signs as d ocumented. Head exam is unremarkable. No scleral icterus or corneal arcus noted. Neck is without jugular venous distension, thyromegaly, or carotid bruits. Carotid upstrokes are brisk bilaterally. Lungs are clear to auscultation and percussion. the patient has chest wall pain along the left anterolateral rib cage specially at the level of the fence 11th and 12th rib.Cardiac exam reveals the PMI to be normally sized and situated. Rhythm is regular. First and second heart sounds normal. No murmurs, rubs or gallops. Abdominal exam reveals normal bowel sounds, no masses, no organomegaly and no aortic enlargement. Extremities are nonedematous and both femoral and pedal pulses are normal.Examination of the skin revealed no evidence of significant rashes, suspicious appearing nevi or other concerning lesions.neurologically awake and alert and there is no focal neurological deficit. Results - Laboratory Findings CBC and BMP: 06/30/19 09:38 06/30/19 09:38 PT/INR, D-dimer PT 10.3 sec (9.0-12.0) 06/30/19 09:38 INR 1.0 (<1.2) 06/30/19 09:38 Abnormal lab findings: Abnormal Labs 06/30/19 06/30/19 06/30/19 09:38 09:38 09:38 Plt Count 125 L Sodium 136 L Carbon Dioxide 21 L BUN 21 H Glucose 155 H POC Glucose (mg/dL) Ur Specific [place] >1.050 H Urine Protein Trace H 06/30/19 06/30/19 06/30/19 11:54 16:32 20:07 Plt Count Sodium Carbon Dioxide BUN Glucose POC Glucose (mg/dL) 172 H 165 H 151 H Ur Specific [place] Urine Protein - Diagnostic Findings CT scan - chest: image reviewed Assessment and Plan Plan: 1 traumatic left-sided chest wall painrelated to a fall. The patient had a CAT scan of the chest abdomen and pelvis for the time of admission the CAT scan showed an atelectatic change at the right lung base. There is a small area of consolidation in the posterior basal segment of the left lower lobe. There is a small left effusion. There is also a displaced fracture of the ninth and the 10th rib and there is no evidence of any pneumothorax 2 skeletal chest wall pain secondary to above 3 fall 4 diabetes mellitus 5 history of skin cancer Plan the patient was admitted for pain control. No issues with oxygenation. The area in the left lower lobe is posttraumatic in nature. Dilaudid for pain control. Incentive spirometer. Hydration. Resume home medication. We'll follow.
--- NOTE | 2019-07-01 12:05 | P.PN ---
Subjective Progress Note Date: 07/01/19 On today's evaluation the patient has no complaints. Pain is subsided. No respiratory difficulties. No cough sputum production chest tightness or wheezing and has been no other significant events over the past 24 hours. Objective - Vital Signs Vital signs: Vital Signs Temp 97.3 F L 07/01/19 08:00 Pulse 71 07/01/19 11:44 Resp 16 07/01/19 11:44 BP 117/55 07/01/19 11:44 Pulse Ox 95 07/01/19 11:44 Intake & Output 06/30/19 07/01/19 07/01/19 18:59 06:59 18:59 Intake Total 570 476 Output Total 1400 Balance 570 -1400 476 Weight 102.965 kg 103 kg Intake: Intake, IV Titration 150 Amount Sodium Chloride 0.9% 1, 150 000 ml @ 75 mls/hr IV . [id number] ONE Rx#:[id number] Oral 420 476 Output: Urine 1400 Other: Voiding Method Toilet # Voids 1 2 - Exam The patient appeared well nourished and normally developed. Vital signs as documented. Head exam is unremarkable. No scleral icterus or corneal arcus noted. Neck is without jugular venous distension, thyromegaly, or carotid bruits. Carotid upstrokes are brisk bilaterally. Lungs are clear to auscultation and percussion. Cardiac exam reveals the PMI to be normally sized and situated. Rhythm is regular. First and second heart sounds normal. No murmurs, rubs or gallops. Abdominal exam reveals normal bowel sounds, no masses, no organomegaly and no aortic enlargement. Extremities are nonedematous and both femoral and pedal pulses are normal. - Labs CBC & Chem 7: 06/30/19 09:38 06/30/19 09:38 Labs: Abnormal Lab Results - Last 24 Hours (Table) 06/30/19 06/30/19 07/01/19 Range/Units 16:32 20:07 06:21 POC Glucose (mg/dL) 165 H 151 H 130 H (75-99) mg/dL 07/01/19 Range/Units 11:34 POC Glucose (mg/dL) 123 H (75-99) mg/dL Assessment and Plan Plan: 1 traumatic left-sided chest wall painrelated to a fall. The patient had a CAT scan of the chest abdomen and pelvis for the time of admission the CAT scan showed an atelectatic change at the right lung base. There is a small area of consolidation in the posterior basal segment of the left lower lobe. There is a small left effusion. There is also a displaced fracture of the ninth and the 10th rib and there is no evidence of any pneumothorax 2 skeletal chest wall pain secondary to above 3 fall 4 diabetes mellitus 5 history of skin cancer Plan Pain is under control Okay for discharge from the pulmonary standpoint Follow-up in the office in 2-3 months time
--- NOTE | 2019-07-01 12:47 | P.DS ---
Providers Date of admission: 06/30/19 10:44 Expected date of discharge: 07/01/19 Attending physician: Rafael Cowart Consults: 06/30/19 10:44 Consult Physician Urgent Consulting Provider: Haresh Schroeder Consult Reason/Comments: Rib fractures Do you want consulting provider notified?: Yes 07/01/19 08:11 Consult Physician Routine Consulting Provider: Ollie Figueredo Consult Reason/Comments: medical management Do you want consulting provider notified?: Yes Primary care physician: [facility] Hospital Course: 74-year-old male who presented to emergency room after sustaining a fall at home. Patient was complaining of pain in the emergency room. Patient was found to have mildly displaced fractures of ninth and 10th left ribs posteriorly. No evidence of pneumothorax. Patient is doing well. He reports his pain has improved. He was deemed stable for discharge home today per Dr. Cowart. Please see EMR for further hospital course details. Discharge Diagnosis 1. Fall 2. Mildly displaced rib fractures, Left 9 and 10 Nurse practitioner note has been reviewed by physician. Signing provider agrees with the documented findings, assessment, and plan of care. Plan - Discharge Summary New Discharge Prescriptions: New Hydrocodone/Acetaminophen [[place] 5-325] 1 tab PO Q6HR PRN #10 tab PRN Reason: Pain No Action Multivitamins, Thera [Multivitamin (formulary)] 1 tab PO DAILY Repaglinide [Prandin] 0.5 mg PO AC-TID Escitalopram [Lexapro] 10 mg PO HS Pioglitazone HCl 15 mg PO DAILY Fluticasone Nasal [place] [Flonase Nasal [place]] 2 spr EA NOSTRIL DAILY Discharge Medication List Escitalopram [Lexapro] 10 mg PO HS 06/20/18 [History] Multivitamins, Thera [Multivitamin (formulary)] 1 tab PO DAILY 06/20/18 [History] Repaglinide [Prandin] 0.5 mg PO AC-TID 06/20/18 [History] Fluticasone Nasal [place] [Flonase Nasal [place]] 2 spr EA NOSTRIL DAILY 06/30/19 [History] Pioglitazone HCl 15 mg PO DAILY 06/30/19 [History] Hydrocodone/Acetaminophen [[place] 5-325] 1 tab PO Q6HR PRN #10 tab 05/11/20 [Rx] Follow up Appointment(s)/Referral(s): Sinan Ortiz DO [Primary Care Provider] - 1-2 days Activity/Diet/Wound Care/Special Instructions: CAN BE DISCHARGED ONLY IF CLEARED BY PULMONARY
[2019-07-01] MEDS ORDERED: FAMOTIDINE 20 MG TAB PO SCH (21:00)
[2019-07-01] MEDS ORDERED: FAMOTIDINE 20 MG/2 ML VIAL IV SCH (21:00)
[2019-07-01] MEDS ORDERED: HEPARIN SODIUM,PORCINE 5,000 UNIT/ML 1 ML VIAL SQ SCH (21:00)
[2019-07-04] MEDS ORDERED: IBUPROFEN 600 MG TAB PO PRN (15:00)
== END 2019-07-01 12:12 | disposition home or self-care (01) | DRG 184 ==
LOC: EC 08:38 → 3SCARD 10:44
PROVIDERS: ADMIT Surgery; ATTEND Surgery
DX: S22.42XA Multiple fractures of ribs, left side, initial encounter for closed fracture (principal); J90 Pleural effusion, not elsewhere classified; E11.9 Type 2 diabetes mellitus without complications; I77.810 Thoracic aortic ectasia; E78.5 Hyperlipidemia, unspecified; Z11.59 Encounter for screening for other viral diseases; K44.9 Diaphragmatic hernia without obstruction or gangrene; M43.16 Spondylolisthesis, lumbar region; F41.9 Anxiety disorder, unspecified; Z79.899 Other long term (current) drug therapy; Z85.828 Personal history of other malignant neoplasm of skin; Z98.890 Other specified postprocedural states; Z98.49 Cataract extraction status, unspecified eye; Z88.0 Allergy status to penicillin; W01.198A Fall on same level from slipping, tripping and stumbling with subsequent striking against other object, initial encounter; Y92.009 Unspecified place in unspecified non-institutional (private) residence as the place of occurrence of the external cause; Z80.8 Family history of malignant neoplasm of other organs or systems
CPT/HCPCS: 36415; 71260; 74177; 80053; 81003; 82150; 83690; 85025; 85610; 85730; 87635; 96361; 96374; 99285

== ENCOUNTER → 2019-07-19 | Outpatient (CLI) | payer MEDICARE | END | disposition home or self-care (01) | LOC: RADMRIMAIN 11:08 | PROVIDERS: ATTEND Otolaryngology | DX: Z53.9 Procedure and treatment not carried out, unspecified reason (principal) ==

== ENCOUNTER → 2019-08-07 | Outpatient (CLI) | payer MEDICARE ==
--- NOTE | 2019-08-07 09:43 | MR ---
EXAMINATION TYPE: MR iac wo/w con DATE OF EXAM: 08/07/2019 8:29 AM COMPARISON: 12/12/2014 HISTORY: Hearing loss TECHNIQUE: Multiplanar and multispin-echo imaging of the brain was performed both before and after the administr ation of contrast. High-resolution images are obtained of the internal auditory canals performed uti lizing 10 mL intravenous Gadavist contrast. The ventricles, basal cisterns and sulci overlying the cerebral convexities are mildly enlarged. Ther e is mild scattered remote deep white matter insults and periventricular white matter ischemic demyel ination. There is no evidence for midline shift or mass effect. Acute intracranial hemorrhage or ext ra-axial collection is not evident. High-resolution imaging of the internal auditory canals fails demonstrate evidence for an enhancing a coustic schwannoma or cerebellopontine cistern angle mass. Following contrast administration, there is no evidence for pathologic enhancement or enhancing mass. The paranasal sinuses and mastoid air cells are well-aerated. IMPRESSION: 1. No evidence of acoustic schwannoma or cerebellopontine angle mass.
== END | disposition home or self-care (01) ==
LOC: RADMRIMAIN 07:22
PROVIDERS: ATTEND Otolaryngology
DX: H91.90 Unspecified hearing loss, unspecified ear (principal); R42 Dizziness and giddiness
CPT/HCPCS: 70553; A9585

== ENCOUNTER → 2020-05-18 | Outpatient (CLI) | payer MEDICARE ==
--- NOTE | 2020-05-18 18:15 | US ---
EXAMINATION TYPE: US bladder DATE OF EXAM: 05/18/2020 COMPARISON: NONE CLINICAL HISTORY: 74-year-old male N39.41 Urge Incontinence. Patient states always having the urge to void TECHNIQUE: Multiple sonographic images of the bladder are obtained. FINDINGS: No gross abnormality is initially urine distended bladder. Both ureteral jets are visualized. On the postvoid images, there is some soft tissue seen along the bladder base, likely relating to the prosta te gland. Post Void Residual Volume: 23.8 mL IMPRESSION: 1. Some soft tissue prominence along the base of the bladder on the postvoid images likely relates to a prominent prostate gland. Correlate with PSA values and physical exam. 2. Increased postvoid bladder volume of 24 mL still falls within acceptable limits (<50 mL).
== END | disposition home or self-care (01) ==
LOC: RADUSWWP 15:24
PROVIDERS: ATTEND Family Medicine
DX: N39.41 Urge incontinence (principal); R39.198 Other difficulties with micturition
CPT/HCPCS: 76857

== ENCOUNTER 2020-10-09 20:57 | Emergency (ER) | payer MEDICARE ==
[2020-10-09] MEDS ORDERED: LIDOCAINE 1% INJ 10MG/ML (20 ML MDV) SQ ONE (22:07)
[2020-10-09] MEDS ORDERED: CEPHALEXIN 500MG STARTER PACK 4 CAP BTL PO STA (22:07)
[2020-10-09] MEDS ORDERED: BACITRACIN OINT 1 EACH PACKET TOPICAL ONE (22:07)
--- NOTE | 2020-10-09 22:39 | ED ---
Wound/Laceration HPI - General Chief Complaint: Wound/Laceration Stated Complaint: Torn skin on right small toe Time Seen by Provider: 10/09/20 21:55 Source: patient Mode of arrival: ambulatory - History of Present Illness Initial Comments: 75-year-old male patient presenting to the emergency department today for evaluation of injury to the right little toe. Patient states he stubbed his toe was holding it to ease the pain and when he took his hand away it was covered with blood. States he noticed there is a laceration along the bottom of the toe. He denies any significant pain to the region. Does not believe his toe was broken. Denies any other injuries. Does not take any blood thinning medications. Denies numbness or tingling to the foot. Patient denies any head ache, neck pain, back pain, chest pain, shortness of breath, dizziness, weakness, abdominal pain, nausea, vomiting, or difficulties with bowel movements or urination. Last tetanus vaccine was within 5 years. - Related Data Home Medications Medication Instructions Recorded Confirmed Escitalopram [Lexapro] 10 mg PO HS 06/20/18 06/30/19 Multivitamins, Thera [Multivitamin 1 tab PO DAILY 06/20/18 06/30/19 (formulary)] Repaglinide [Prandin] 0.5 mg PO AC-TID 06/20/18 06/30/19 Fluticasone Nasal [place] [Flonase 2 spr EA NOSTRIL DAILY 06/30/19 06/30/19 Nasal [place]] Pioglitazone HCl 15 mg PO DAILY 06/30/19 06/30/19 Previous Rx's Medication Instructions Recorded Hydrocodone/Acetaminophen [[place] 1 tab PO Q6HR PRN #10 tab 07/01/19 5-325] Cephalexin [Keflex] 500 mg PO BID #14 cap 10/09/20 Allergies Allergy/AdvReac Type Severity Reaction Status Date / Time amoxicillin Allergy Itching Verified 10/09/20 21:40 Review of Systems ROS Statement: Those systems with pertinent positive or pertinent negative responses have been documented in the HPI. ROS Other: All systems not noted in ROS Statement are negative. Past Medical History Past Medical History: Cancer, Diabetes Mellitus, Hyperlipidemia, Syncope Additional Past Medical History / Comment(s): Skin cancer- face, back and arm. States SOB when lying flat. History of Any Multi-Drug Resistant Organisms: None Reported Past Surgical History: Orthopedic Surgery, Tonsillectomy Additional Past Surgical History / Comment(s): R finger surgery. Cataract surgery. Past Anesthesia/Blood Transfusion Reactions: No Reported Reaction Additional Past Anesthesia/Blood Transfusion Reaction / Comment(s): States does not take much anesthesia to put me to sleep. Past Psychological History: Anxiety Smoking Status: Never smoker Past Alcohol Use History: None Reported Past Drug Use History: None Reported - Past Family History Father Family Medical History: Cancer Additional Family Medical History / Comment(s): Brain Sister(s) Family Medical History: Cancer Additional Family Medical History / Comment(s): Thyroid General Exam General appearance: alert, in no apparent distress, other (This is a well- developed, well-nourished elderly male patient in no acute distress. Vital signs upon presentation are temperature 97.9F, pulse 56, respirations 19, blood pressure 117/68, pulse ox 98% on room air.) ENT exam: Present: mucous membranes moist Respiratory exam: Present: normal lung sounds bilaterally. Absent: respiratory distress, wheezes, rales, rhonchi, stridor Cardiovascular Exam: Present: regular rate, normal rhythm, normal heart sounds. Absent: systolic murmur, diastolic murmur, rubs, gallop, clicks Extremities exam: Present: full ROM, normal capillary refill, other (There is 3 cm laceration noted along the base of the right little toe over the plantar surface. Skin is otherwise pink, warm, dry. Cap refill less than 3 seconds. Pedal pulses 2+.). Absent: tenderness, pedal edema, joint swelling, calf tenderness Neurological exam: Present: alert, oriented X3, CN II-XII intact Psychiatric exam: Present: normal affect, normal mood Skin exam: Present: warm, dry, intact, normal color. Absent: rash Course Vital Signs 10/09/20 10/09/20 21:38 22:56 Temperature 97.9 F 98 F Pulse Rate 56 L 58 L Respiratory 19 16 Rate Blood Pressure 117/68 126/77 O2 Sat by Pulse 98 98 Oximetry Procedures - Laceration Laceration #1 Consent Obtained: verbal consent Indication: laceration Site: foot (Right fifth toe, plantar surface) Size (cm): 3 Depth: simple, single layer Anesthetic Used: lidocaine 1% Anesthesia Technique: local infiltration Amount (mls): 4 Pre-repair: wound explored, irrigated extensively Type of Sutures: nylon Size of Sutures: 4-0 Number of Sutures: 4 Technique: simple, interrupted Patient Tolerated Procedure: well, no complications Medical Decision Making - Medical Decision Making 75-year-old male patient presented to the emergency department today for evaluation of laceration to the right fifth toe. Physical examination did reveal 3 cm laceration to the plantar surface of the base of the right fifth toe. Neurovascular status was intact. Wound was repaired as documented. Patient declined xray. He was started on antibiotics for prophylaxis. Educated regarding wound care signs or symptoms of infection. Given a postop shoe for support. To return to have stitches removed in 2 weeks. Return parameters were discussed in detail. He verbalizes understanding and agrees with this plan. My attending is Dr. Garcia. Disposition Clinical Impression: Laceration of fifth toe, right Disposition: HOME SELF-CARE Condition: Good Instructions (If sedation given, give patient instructions): Care For Your Stitches (ED), Laceration (ED) Additional Instructions: Keep wound clean and dry. Cleanse twice daily with warm water and antibacterial soap. Cleanse with antibacterial soap after showers. Return in 2 weeks had stitches removed. Complete antibiotic prescription and full. Follow-up with the primary care physician for recheck in 1-2 days. Return to the emergency department for any new, worsening, or concerning symptoms. Prescriptions: Cephalexin [Keflex] 500 mg PO BID #14 cap Is patient prescribed a controlled substance at d/c from ED?: No Referrals: Sinan Ortiz DO [Primary Care Provider] - 1-2 days Time of Disposition: 22:38
[2020-10-09 22:56] VITALS: BP 126/77; PULSE 58; RESP 16; TEMP 98
== END 2020-10-09 22:55 | disposition home or self-care (01) ==
LOC: EC 20:57
DX: S91.114A Laceration without foreign body of right lesser toe(s) without damage to nail, initial encounter (principal); E11.9 Type 2 diabetes mellitus without complications; E78.5 Hyperlipidemia, unspecified; F41.9 Anxiety disorder, unspecified; Z88.1 Allergy status to other antibiotic agents; Z90.89 Acquired absence of other organs; Z85.828 Personal history of other malignant neoplasm of skin; W22.09XA Striking against other stationary object, initial encounter
CPT/HCPCS: 99282; 12002; J2001

== ENCOUNTER 2021-09-22 08:08 | Day surgery (SDC) | payer MEDICARE ==
[2021-09-21 13:11] VITALS: BMI 27.8
[~2021-09-22 08:08] MED LIST changes: +LIDOCAINE 1% (10MG/ML) FOR IV START INTRADERMA PRN; -LIDOCAINE 1% 20 ML VIAL (10MG/ML) FOR IV START INTRADERMA PRN
[2021-09-22 08:41] VITALS: RESP 16; TEMP 97.9
[2021-09-22 08:53] LABS: Glucose,Whole Blood 168 mg/dL (70-110)
[2021-09-22] MEDS ORDERED: PROPOFOL 10 MG/ML 20 ML VIAL IV ONE (09:27)
[2021-09-22] MEDS ORDERED: LIDOCAINE 2% INJ 20 MG/ML (2 ML VIAL) ONE (09:27)
--- NOTE | 2021-09-22 09:38 | P.PCN ---
Date of Procedure: 09/22/21 Procedure(s) Performed: BRIEF HISTORY: Patient is a 68-year-old, pleasant, white male scheduled for an upper endoscopy as a part of evaluation of intermittent dysphagia to solids for the last 6 months duration. Lately his symptoms have been almost on a daily basis. Most with solids and occasionally with liquids. No history of GERD. He did have a barium swallow done a month ago that revealed cricopharyngeal spasm and tertiary contractions.. PROCEDURE PERFORMED: Esophagogastroduodenoscopy with biopsy. PREOPERATIVE DIAGNOSIS: Intermittent dysphagia to solids of 6 months duration. IV sedation per anesthesia. PROCEDURE: After informed consent was obtained, the patient was brought into the endoscopy unit. IV sedation was administered by Anesthesia under continuous monitoring. Initially the Olympus GIF-140 video endoscope was inserted into the mouth. Esophagus intubated without any difficulty. It was gradually advanced into the stomach and duodenum and carefully examined. The bulb and the second part of the duodenum appeared normal. The scope at this time was withdrawn to the stomach, adequately insufflated with air, and upon careful examination, mucosa of the antrum, body, cardia and the fundus appeared normal. The scope was then withdrawn into the esophagus. Small sliding Hiatal hernia noted. The GE junction was located at 39 cm from the incisors. The esophagus appeared normal. There were no erosions or ulcerations seen, no evidence of esophageal stricture. The proximal cervical esophagus was carefully examined and no abnormalities identified in this area. Biopsies were done from the mid and distal esophagus and the patient tolerated the procedure well. IMPRESSION: 1. Normal-appearing esophagus with no evidence of esophagitis, esophageal stricture or Zenker's diverticulum. 2. Small hiatal hernia. RECOMMENDATIONS: The findings of this examination were discussed with the patient as well as his family. He was advised to follow with the biopsy results. He was educated about diet modification and eating softer foods. Polyp in the office in 3 months..
[2021-09-22 10:07] VITALS: BP 142/82; PULSE 58
== END 2021-09-22 10:20 | disposition home or self-care (01) ==
LOC: ORWHC2ENDO 08:08
PROVIDERS: ATTEND Internal Medicine Gastroenterology
DX: K20.90 Esophagitis, unspecified without bleeding (principal); K44.9 Diaphragmatic hernia without obstruction or gangrene; E11.9 Type 2 diabetes mellitus without complications; F32.A Depression, unspecified; Z88.0 Allergy status to penicillin; Z79.899 Other long term (current) drug therapy; Z80.8 Family history of malignant neoplasm of other organs or systems
CPT/HCPCS: 88305; 43239; J2704; J2001

== ENCOUNTER 2023-05-15 19:44 | Inpatient (IN) | payer MEDICARE ==
[2023-05-15 19:57] LABS: Glucose,Whole Blood 139 mg/dL (70-110)
--- NOTE | 2023-05-15 20:34 | ED ---
General Adult HPI - General Chief complaint: Dizziness Stated complaint: Fall Time Seen by Provider: 05/15/23 20:18 Source: patient, RN notes reviewed, old records reviewed Mode of arrival: wheelchair Limitations: no limitations - History of Present Illness Initial comments: 77-year-old male presenting with weakness, and 2 episodes of minor fall without injury. Patient states he has had cough and cold symptoms for the past 3 to 4 days. He said increased weakness as well as headache. He is noted to be febrile upon arrival but did not complain of fever prior to this. No central chest pain. No focal numbness or weakness. Patient did report some lower abdominal pain over the past several days as well. - Related Data Home Medications Medication Instructions Recorded Confirmed Escitalopram [Lexapro] 10 mg PO HS 06/20/18 09/21/21 Multivitamins, Thera [Multivitamin 1 tab PO DAILY 06/20/18 09/21/21 (formulary)] Repaglinide [Prandin] 1 mg PO AC-BRKFST 06/20/18 09/22/21 Repaglinide [Prandin] 2 mg PO AC-LUNCH 09/22/21 09/22/21 Repaglinide [Prandin] 2 mg PO AC-SUPPER 09/22/21 09/22/21 hydrOXYzine pamoate 25 mg PO Q6HR PRN 09/22/21 09/22/21 Allergies Allergy/AdvReac Type Severity Reaction Status Date / Time amoxicillin Allergy Itching Verified 05/15/23 19:58 Review of Systems ROS Statement: Those systems with pertinent positive or pertinent negative responses have been documented in the HPI. ROS Other: All systems not noted in ROS Statement are negative. Past Medical History Past Medical History: Cancer, Diabetes Mellitus, Hyperlipidemia Additional Past Medical History / Comment(s): Skin cancer- face, back and arm. States SOB when lying flat AT NIGHT AT TIMES History of Any Multi-Drug Resistant Organisms: None Reported Past Surgical History: Orthopedic Surgery, Tonsillectomy Additional Past Surgical History / Comment(s): R finger surgery. BILATERAL Cataract surgery. LEFT EYE SURGRY, Past Anesthesia/Blood Transfusion Reactions: No Reported Reaction Additional Past Anesthesia/Blood Transfusion Reaction / Comment(s): States does not take much anesthesia to put me to sleep. Past Psychological History: Anxiety Smoking Status: Never smoker Past Alcohol Use History: None Reported Past Drug Use History: None Reported - Past Family History Father Family Medical History: Cancer Additional Family Medical History / Comment(s): Brain Sister(s) Family Medical History: Cancer Additional Family Medical History / Comment(s): Thyroid General Exam Limitations: no limitations General appearance: alert, in no apparent distress Head exam: Present: atraumatic, normocephalic Eye exam: Present: normal appearance, PERRL ENT exam: Present: normal exam Neck exam: Present: normal inspection. Absent: tenderness, meningismus Respiratory exam: Present: normal lung sounds bilaterally. Absent: respiratory distress, wheezes Cardiovascular Exam: Present: regular rate, normal rhythm GI/Abdominal exam: Present: soft, tenderness (Minimal bilateral lower tenderness). Absent: distended, guarding, rebound Extremities exam: Present: normal inspection, normal capillary refill Neurological exam: Present: alert, oriented X3, CN II-XII intact. Absent: motor sensory deficit Psychiatric exam: Present: normal affect, normal mood Skin exam: Present: warm, dry, intact. Absent: cyanosis, diaphoretic Course Vital Signs 05/15/23 19:53 Temperature 100.8 F H Pulse Rate 74 Respiratory 18 Rate Blood Pressure 123/58 O2 Sat by Pulse 95 Oximetry Medical Decision Making - Medical Decision Making Was pt. sent in by a medical professional or institution (BRINA Berg, MICROBIOLOGY COORDINATOR, urgent care, hospital, or fci...) When possible be specific @ -No Did you speak to anyone other than the patient for history (EMS, parent, family, police, friend...)? What history was obtained from this source @ -No Did you review nursing and triage notes (agree or disagree)? Why? @ -I reviewed and agree with nursing and triage notes Were old charts reviewed (outside hosp., previous admission, EMS record, old EKG, old radiological studies, urgent care reports/EKG's, fci records)? Report findings @ -No old charts were reviewed Differential Diagnosis (chest pain, altered mental status, abdominal pain women, abdominal pain men, vaginal bleeding, weakness, fever, dyspnea, syncope, headache, dizziness, GI bleed, back pain, seizure, CVA, palpatations, mental health, musculoskeletal)? @Differential Weakness: Hypoglycemia, shock, sepsis, hyponatremia, anemia, infection, [place], ETOH, adverse medicine reaction, overdose, stroke, this is not meant to be an all-inclusive list. EKG interpreted by me (3pts min.). @Sinus rhythm rate of 68, DC interval 167, QRS duration 96, QTc [address] segment elevation. X-rays interpreted by me (1pt min.). @Chest x-ray negative for acute cardiopulmonary findings CT interpreted by me (1pt min.). @ -[CT showing inflammation at the base of the cecum and a 7 mm appendix, possible appendicitis, possible mass U/S interpreted by me (1pt. min.). @ -None done What testing was considered but not performed or refused? (CT, X-rays, U/S, labs)? Why? @ -None What meds were considered but not given or refused? Why? @ -None Did you discuss the management of the patient with other professionals (professionals i.e. , PA, MICROBIOLOGY COORDINATOR, lab, RT, psych nurse, psychosocial rehabilitation counselor, personal financial planner, teacher, operational intelligence officer, ed case manager)? Give summary @ -[Dr. Cowart Was smoking cessation discussed for >3mins.? @ -No Was critical care preformed (if so, how long)? @ -No Were there social determinants of health that impacted care today? How? (Homelessness, low income, unemployed, alcoholism, drug addiction, transportation, low edu. Level, literacy, decrease access to med. care, nursing home, rehab)? @ -No Was there de-escalation of care discussed even if they declined (Discuss DNR or withdrawal of care, Hospice)? DNR status @ -No What co-morbidities impacted this encounter? (DM, HTN, Smoking, COPD, CAD, C ancer, CVA, ARF, Chemo, Hep., AIDS, mental health diagnosis, sleep apnea, morbid obesity)? @ -None Was patient admitted / discharged? Hospital course, mention meds given and route, prescriptions, significant lab abnormalities, going to OR and other pertinent info. @77-year-old male with weakness, fever. And abdominal pain several days prior. Patient did also note some upper respiratory symptoms. Chest x-ray is negative for focal pneumonia. Viral workup is negative. Patient has normal CBC, normal CMP. Urinalysis unremarkable. I did perform CT imaging which shows a inflammatory change at the base of the cecum, possible mass, possible early appendicitis. I discussed case with general surgery who will admit for evaluation. Medicine placed on consult. Antibiotics initiated in the emergency department. Undiagnosed new problem with uncertain prognosis? @ -No Drug Therapy requiring intensive monitoring for toxicity (Heparin, Nitro, Insulin, Cardizem)? @ -No Were any procedures done? @ -No Diagnosis/symptom? @Cecal inflammation, possible appendicitis Acute, or Chronic, or Acute on Chronic? @ -Acute Uncomplicated (without systemic symptoms) or Complicated (systemic symptoms)? @ -Default Side effects of treatment? @ -No Exacerbation, Progression, or Severe Exacerbation? @ -No Poses a threat to life or bodily function? How? (Chest pain, [place], [place], pneumonia, PE, COPD, DKA, ARF, appy, cholecystitis, CVA, Diverticulitis, Homicidal, Suicidal, threat to staff... and all critical care pts) @ -Yes, sepsis - Lab Data Result diagrams: 05/15/23 20:00 05/15/23 20:00 Lab Results 05/15/23 05/15/23 05/15/23 Range/Units 19:56 20:00 20:00 WBC 4.2 (3.8-10.6) k/uL RBC 4.66 (4.30-5.90) m/uL Hgb 14.0 (13.0-17.5) gm/dL Hct 39.6 (39.0-53.0) % MCV 85.1 (80.0-100.0) fL MCH 30.0 (25.0-35.0) pg MCHC 35.3 (31.0-37.0) g/dL RDW 13.5 (11.5-15.5) % Plt Count 111 L (150-450) k/uL MPV 7.8 Neutrophils % 76 % Lymphocytes % 12 % Monocytes % 8 % Eosinophils % 2 % Basophils % 0 % Neutrophils # 3.2 (1.3-7.7) k/uL Lymphocytes # 0.5 L (1.0-4.8) k/uL Monocytes # 0.3 (0-1.0) k/uL Eosinophils # 0.1 (0-0.7) k/uL Basophils # 0.0 (0-0.2) k/uL Sodium (137-145) mmol/L Potassium (3.5-5.1) mmol/L Chloride (98-107) mmol/L Carbon Dioxide (22-30) mmol/L Anion Gap mmol/L BUN (9-20) mg/dL Creatinine (0.66-1.25) mg/dL Est GFR (CKD-EPI)AfAm (>60 ml/min/1.73 sqM) Est GFR (CKD-EPI)NonAf (>60 ml/min/1.73 sqM) Glucose (74-99) mg/dL POC Glucose (mg/dL) 139 H (70-110) mg/dL POC Glu [employer] Developer ID Johny Astorga Calcium (8.4-10.2) mg/dL Total Bilirubin (0.2-1.3) mg/dL AST (17-59) U/L ALT (4-49) U/L Alkaline Phosphatase (38-126) U/L Total Protein (6.3-8.2) g/dL Albumin (3.5-5.0) g/dL Urine Color Yellow Urine Appearance Clear (Clear) Urine pH 6.5 (5.0-8.0) Ur Specific [place] 1.027 (1.001-1.035) Urine Protein Trace H (Negative) Urine Glucose (UA) 1+ H (Negative) Urine Ketones Trace H (Negative) Urine Blood Negative (Negative) Urine Nitrite Negative (Negative) Urine Bilirubin Negative (Negative) Urine Urobilinogen 2.0 (<2.0) mg/dL Ur Leukocyte Esterase Negative (Negative) Influenza Type A (PCR) (Not Detectd) Influenza Type B (PCR) (Not Detectd) RSV (PCR) (Not Detectd) SARS-CoV-2 (PCR) (Not Detectd) 05/15/23 05/15/23 Range/Units 20:00 20:00 WBC (3.8-10.6) k/uL RBC (4.30-5.90) m/uL Hgb (13.0-17.5) gm/dL Hct (39.0-53.0) % MCV (80.0-100.0) fL MCH (25.0-35.0) pg MCHC (31.0-37.0) g/dL RDW (11.5-15.5) % Plt Count (150-450) k/uL MPV Neutrophils % % Lymphocytes % % Monocytes % % Eosinophils % % Basophils % % Neutrophils # (1.3-7.7) k/uL Lymphocytes # (1.0-4.8) k/uL Monocytes # (0-1.0) k/uL Eosinophils # (0-0.7) k/uL Basophils # (0-0.2) k/uL Sodium 134 L (137-145) mmol/L Potassium 4.1 (3.5-5.1) mmol/L Chloride 103 (98-107) mmol/L Carbon Dioxide 24 (22-30) mmol/L Anion Gap 7 mmol/L BUN 19 (9-20) mg/dL Creatinine 1.08 (0.66-1.25) mg/dL Est GFR (CKD-EPI)AfAm 75 (>60 ml/min/1.73 sqM) Est GFR (CKD-EPI)NonAf 65 (>60 ml/min/1.73 sqM) Glucose 134 H (74-99) mg/dL POC Glucose (mg/dL) (70-110) mg/dL POC Glu [employer] Developer ID Calcium 9.0 (8.4-10.2) mg/dL Total Bilirubin 0.9 (0.2-1.3) mg/dL AST 28 (17-59) U/L ALT 21 (4-49) U/L Alkaline Phosphatase 60 (38-126) U/L Total Protein 7.0 (6.3-8.2) g/dL Albumin 4.0 (3.5-5.0) g/dL Urine Color Urine Appearance (Clear) Urine pH (5.0-8.0) Ur Specific [place] (1.001-1.035) Urine Protein (Negative) Urine Glucose (UA) (Negative) Urine Ketones (Negative) Urine Blood (Negative) Urine Nitrite (Negative) Urine Bilirubin (Negative) Urine Urobilinogen (<2.0) mg/dL Ur Leukocyte Esterase (Negative) Influenza Type A (PCR) Not Detected (Not Detectd) Influenza Type B (PCR) Not Detected (Not Detectd) RSV (PCR) Not Detected (Not Detectd) SARS-CoV-2 (PCR) Not Detected (Not Detectd) Disposition Clinical Impression: Appendicitis Disposition: ADMITTED IP TO THIS HOSP Condition: Stable Is patient prescribed a controlled substance at d/c from ED?: No Referrals: Sinan Ortiz DO [Primary Care Provider] - 1-2 days Time of Disposition: 22:57
[2023-05-15 20:41] LABS: Appearance,Urine Clear (Clear); Bilirubin,Urine Negative (Negative); Blood,Urine Negative (Negative); Color,Urine Yellow; Glucose,Urine (UA) 1+ (Negative); Ketones,Urine Trace (Negative); Leukocyte Esterase,Urine Negative (Negative); Nitrite,Urine Negative (Negative); PH, Urine 6.5 (5.0-8.0); Protein,Urine Trace (Negative); Specific Gravity,Urine 1.027 (1.001-1.035)
[2023-05-15 20:43] LABS: Basophils % (A) 0 %; Eosinophils # (A) 0.1 k/uL (0-0.7); Eosinophils % (A) 2 %; HCT 39.6 % (39.0-53.0); Lymphocytes # (A) 0.5 k/uL (1.0-4.8); Lymphocytes % (A) 12 %; MCHC 35.3 g/dL (31.0-37.0); MCV 85.1 fL (80.0-100.0); Mean Platelet Volume 7.8; Monocytes # (A) 0.3 k/uL (0-1.0); Monocytes % (A) 8 %; Neutrophils # (A) 3.2 k/uL (1.3-7.7); Neutrophils % (A) 76 %; Platelet Count 111 k/uL (150-450); RBC 4.66 m/uL (4.30-5.90); RDW 13.5 % (11.5-15.5); WBC 4.2 k/uL (3.8-10.6)
[2023-05-15 20:47] LABS: ALT 21 U/L (4-49); AST 28 U/L (17-59); African American GFR (CKD) 75 (>60 ml/min/1.73 sqM); Alkaline Phosphatase 60 U/L (38-126); Anion Gap 7 mmol/L; Blood Urea Nitrogen 19 mg/dL (9-20); Carbon Dioxide 24 mmol/L (22-30); Chloride 103 mmol/L (98-107); Glucose 134 mg/dL (74-99); Non-African American GFR(CKD) 65 (>60 ml/min/1.73 sqM); Potassium 4.1 mmol/L (3.5-5.1); Sodium 134 mmol/L (137-145); Total Bilirubin 0.9 mg/dL (0.2-1.3)
[2023-05-15] MEDS: SODIUM CHLORIDE 0.9% 500 ML 500 ML IV ONE ×2 (21:48→23:58)
[2023-05-15] MEDS: ACETAMINOPHEN TAB 500 MG TAB PO STA (21:48)
--- NOTE | 2023-05-15 22:17 | XR ---
EXAMINATION TYPE: XR chest 2V DATE OF EXAM: 05/15/2023 COMPARISON: Prior CT June 30, 2019 HISTORY: Cough and fever. TECHNIQUE: Frontal and lateral views of the chest are obtained. FINDINGS: There is no focal air space opacity, pleural effusion, or pneumothorax seen. The cardiac silhouette size is stable and within normal limits. The osseous structures are intact. IMPRESSION: No acute pulmonary infiltrate currently.
--- NOTE | 2023-05-15 22:33 | CT ---
EXAMINATION TYPE: CT abdomen pelvis w con DATE OF EXAM: 05/15/2023 COMPARISON: CT June 30, 2019 HISTORY: nausea, lower abdominal pain CT DLP: 1510.5 mGycm, Automated Exposure Control for Dose Reduction was Utilized. CONTRAST: CT scan of the abdomen and pelvis is performed with oral and with IV Contrast, patient injected with 100 mL of Isovue 300. FINDINGS: LUNG BASES: Ossification at the level of the aortic valve is redemonstrated. Coronary artery calcific ation is redemonstrated. LIVER/GB: Liver remains diffusely low dense consistent with fatty infiltrative hepatocellular disease . Contracted gallbladder on current study PANCREAS: Moderate generalized atrophy. SPLEEN: No significant abnormality is seen. ADRENALS: No significant abnormality is seen. KIDNEYS: No significant abnormality is seen. BOWEL: Small hiatal hernia redemonstrated. Terminal ileum appears within normal limits coronal image 41. Mild to moderate inflammatory change at the base of cecum. Appendix extends medially from base of cecum seen best on coronal image 50. Appendix is minimally dilated up to 7 mm. Base of cecum is susp icious with masslike wall thickening coronal image 46 measuring 3.9 cm. No free or mesenteric air. No well-formed fluid collection or abscess seen. PROSTATE/SEMINAL VESICLES: No gross abnormality seen. LYMPH NODES: Prominent but subcentimeter reactive lymph nodes in the right lower quadrant mesentery are identified. No greater than 1cm abdominal or pelvic lymph nodes are appreciated. OSSEOUS STRUCTURES: Moderate disc space narrowing and vacuum disc phenomenon at L4-L5 and L5-S1 level s. Spondylolisthesis redemonstrated at these levels. Bilateral pars defect L5 level redemonstrated. M oderate axial joint space loss in both hips redemonstrated. OTHER: Mild calcified plaque of the aorta extends into branch vessels. Moderate size fat-containing b ilateral inguinal hernias are redemonstrated. IMPRESSION: 1. There is inflammatory change at base of cecum in the right lower quadrant. Acute appendicitis emmanuel ot be excluded. Findings suspicious for underlying mass or neoplasm at base of cecum especially given patient's age. Advise surgical evaluation.
[2023-05-15] MEDS ORDERED: HYDROmorphone 0.5 MG/0.5 ML SYRINGE IVP PRN (22:53)
[2023-05-15] MEDS ORDERED: NALOXONE 0.4 MG/ML 1 ML VIAL IV PRN (22:53)
[2023-05-15] MEDS: SODIUM CHLORIDE 0.9% 1,000 ML IV SCH (23:58)
[2023-05-16] MEDS: metroNIDAZOLE-NS PMX 500 MG in SALINE 1 100ML.BAG IVPB STA (00:52)
[2023-05-16] MEDS: ACETAMINOPHEN TAB 325 MG TAB PO PRN (06:08)
[2023-05-16] MEDS ORDERED: DEXTROSE 50% SYRINGE 50 ML IVP PRN ×2 (11:13)
[2023-05-16] MEDS: INSULIN ASPART (NovoLOG) 100 UNIT/ML VIAL SQ SCH (12:25)
[2023-05-16 12:31] LABS: Glucose,Whole Blood 131 mg/dL (70-110)
--- NOTE | 2023-05-16 13:18 | P.GSHP ---
History of Present Illness H&P Date: 05/16/23 CHIEF COMPLAINT: Weakness and fall HISTORY OF PRESENT ILLNESS: This is a 77-year-old male who presented to the hospital with complaints of abdominal pain that started 5 days ago. Patient reports he had pain for couple days in the lower abdomen both right lower quadrant and left lower quadrant. Pain has improved. However he has been feeling very weak and almost falling. He came into the ER for further evaluation. He did have a low-grade temp of 100.[address] scan abdomen and pelvis completed that had reported inflammatory change at the base of the cecum in the right lower quadrant. Acute appendicitis cannot be excluded. Findings suspicious for underlying mass or neoplasm at the base of the cecum especially given the patient's age. Patient's white count is normal. Pain has resolved. His last colonoscopy was about 5 years ago and reports it is normal. He denies any prior surgical history. Denies any cardiac history. Denies any nausea or vomiting. He reports regular bowel movements. He denies any blood in his stools. Patient seen and examined with Dr. Cowart PAST MEDICAL HISTORY: Skin cancer, diabetes, hyperlipidemia, obstructive sleep apnea uses CPAP at home PAST SURGICAL HISTORY: See below MEDICATIONS: See below ALLERGIES: See below SOCIAL HISTORY: No illicit drug use. REVIEW OF SYSTEMS: CONSTITUTIONAL: Denies fever or chills. HEENT: Denies blurred vision, vision changes, or eye pain. Denies hemoptysis CARDIOVASCULAR: Denies chest pain or pressure. RESPIRATORY: No shortness of breath. GASTROINTESTINAL: See HPI for pertinent findings HEMATOLOGIC: Denies bleeding disorders. GENITOURINARY: Denies any blood in urine or increased urinary frequency. SKIN: Denies pruitis. Denies rash. PHYSICAL EXAM: VITAL SIGNS: Reviewed GENERAL: Well-developed in no acute distress. HEENT: No sclera icterus. Extraocular movements grossly intact. Moist buccal mucosa. Head is atraumatic, normocephalic. No nasal drainage. ABDOMEN: Soft. Nondistended. Nontender NEUROLOGIC: Sleepy LABORATORY DATA: WBC 4.2 Hgb 14 platelets 111 Sodium 134 potassium 4.1 creatinine 1.08 Influenza, RSV COVID-19 not detected Urinalysis negative for infection IMAGING: CT scan as stated above ASSESSMENT: 1. Abdominal pain 2. Inflammatory change at the base of the cecum noted on CT scan PLAN: -Patient will be scheduled for colonoscopy on with Dr. Cowart -Start clear liquid diet -Continue supportive care -Medicine service consulted for medical management -Continue IV fluids -Start GoLytely bowel prep tomorrow -History of obstructive sleep apnea and uses CPAP at home. Recommend patient bring CPAP to hospital. -Prophylaxis Protonix and DVT prophylaxis subcu heparin Physician Industrial Engineering Technologist note has been reviewed by physician. Signing provider agrees with the documented findings, assessment, and plan of care. Past Medical History Past Medical History: Cancer, Diabetes Mellitus, Hyperlipidemia Additional Past Medical History / Comment(s): Skin cancer- face, back and arm. States SOB when lying flat AT NIGHT AT TIMES History of Any Multi-Drug Resistant Organisms: None Reported Past Surgical History: Orthopedic Surgery, Tonsillectomy Additional Past Surgical History / Comment(s): R finger surgery. BILATERAL Cataract surgery. LEFT EYE SURGRY, Past Anesthesia/Blood Transfusion Reactions: No Reported Reaction Additional Past Anesthesia/Blood Transfusion Reaction / Comment(s): States does not take much anesthesia to put me to sleep. Past Psychological History: Anxiety Smoking Status: Never smoker Past Alcohol Use History: None Reported Past Drug Use History: None Reported - Past Family History Father Family Medical History: Cancer Additional Family Medical History / Comment(s): Brain Sister(s) Family Medical History: Cancer Additional Family Medical History / Comment(s): Thyroid Medications and Allergies Home Medications Medication Instructions Recorded Confirmed Type Repaglinide [Prandin] 2 mg PO AC-TID 09/22/21 05/16/23 History Escitalopram [Lexapro] 20 mg PO HS 05/16/23 05/16/23 History Insulin Glargine,Hum.rec.anlog 30 units SQ DAILY 05/16/23 05/16/23 History [Lantus Solostar Pen] Allergies Allergy/AdvReac Type Severity Reaction Status Date / Time amoxicillin Allergy Itching Verified 05/16/23 07:31 Surgical - Exam Vital Signs Temp Pulse Resp BP Pulse Ox 100.8 F H 74 18 123/58 95 05/15/23 19:53 05/15/23 19:53 05/15/23 19:53 05/15/23 19:53 05/15/23 19:53 Results - Labs 05/15/23 20:00 05/15/23 20:00 Abnormal Lab Results - Last 24 Hours (Table) 05/15/23 05/15/23 05/15/23 Range/Units 19:56 20:00 20:00 Plt Count 111 L (150-450) k/uL Lymphocytes # 0.5 L (1.0-4.8) k/uL Sodium (137-145) mmol/L Glucose (74-99) mg/dL POC Glucose (mg/dL) 139 H (70-110) mg/dL Urine Protein Trace H (Negative) Urine Glucose (UA) 1+ H (Negative) Urine Ketones Trace H (Negative) 05/15/23 Range/Units 20:00 Plt Count (150-450) k/uL Lymphocytes # (1.0-4.8) k/uL Sodium 134 L (137-145) mmol/L Glucose 134 H (74-99) mg/dL POC Glucose (mg/dL) (70-110) mg/dL Urine Protein (Negative) Urine Glucose (UA) (Negative) Urine Ketones (Negative) Diabetes panel 05/15/23 Range/Units 20:00 Sodium 134 L (137-145) mmol/L Potassium 4.1 (3.5-5.1) mmol/L Chloride 103 (98-107) mmol/L Carbon Dioxide 24 (22-30) mmol/L BUN 19 (9-20) mg/dL Creatinine 1.08 (0.66-1.25) mg/dL Glucose 134 H (74-99) mg/dL Calcium 9.0 (8.4-10.2) mg/dL AST 28 (17-59) U/L ALT 21 (4-49) U/L Alkaline Phosphatase 60 (38-126) U/L Total Protein 7.0 (6.3-8.2) g/dL Albumin 4.0 (3.5-5.0) g/dL Calcium panel 05/15/23 Range/Units 20:00 Calcium 9.0 (8.4-10.2) mg/dL Albumin 4.0 (3.5-5.0) g/dL Pituitary panel 05/15/23 Range/Units 20:00 Sodium 134 L (137-145) mmol/L Potassium 4.1 (3.5-5.1) mmol/L Chloride 103 (98-107) mmol/L Carbon Dioxide 24 (22-30) mmol/L BUN 19 (9-20) mg/dL Creatinine 1.08 (0.66-1.25) mg/dL Glucose 134 H (74-99) mg/dL Calcium 9.0 (8.4-10.2) mg/dL Adrenal panel 05/15/23 Range/Units 20:00 Sodium 134 L (137-145) mmol/L Potassium 4.1 (3.5-5.1) mmol/L Chloride 103 (98-107) mmol/L Carbon Dioxide 24 (22-30) mmol/L BUN 19 (9-20) mg/dL Creatinine 1.08 (0.66-1.25) mg/dL Glucose 134 H (74-99) mg/dL Calcium 9.0 (8.4-10.2) mg/dL Total Bilirubin 0.9 (0.2-1.3) mg/dL AST 28 (17-59) U/L ALT 21 (4-49) U/L Alkaline Phosphatase 60 (38-126) U/L Total Protein 7.0 (6.3-8.2) g/dL Albumin 4.0 (3.5-5.0) g/dL
[2023-05-16] MEDS: PANTOPRAZOLE 40 MG TABLET PO SCH (13:45)
[2023-05-16] MEDS: HEPARIN SODIUM,PORCINE 5,000 UNIT/ML 1 ML VIAL SQ SCH (13:47)
--- NOTE | 2023-05-16 14:51 | CT ---
EXAMINATION TYPE: CT brain wo con CT DLP: 1224.4 mGycm, Automated exposure control for dose reduction was used. DATE OF EXAM: 05/16/2023 2:18 PM COMPARISON: None. CLINICAL INDICATION:Male, 77 years old with history of stroke, Confusion. TECHNIQUE: Brain: Axial CT images of the brain were obtained with coronal and sagittal reformats created and rev iewed. Contrast used: None. Oral contrast used: None. FINDINGS: Brain: Extra-axial spaces: No abnormal extra-axial fluid collections. Ventricular system: Dilatation in proportion to cerebral atrophy. Cerebral parenchyma: Cerebral atrophy. No acute intraparenchymal hemorrhage or mass effect. The zamora -white junction is well differentiated. Scattered hypoattenuating areas are seen within the white mat ter. Cerebellum: Unremarkable. Mass effect: No evidence of midline shift. Intracranial vasculature: unremarkable Soft tissues: Normal. Calvarium/osseous structures: No depressed skull fracture. Paranasal sinuses and mastoid air cells: Mild scattered paranasal sinus disease. Visualized orbits: Bilateral aphakia IMPRESSION: 1. No acute intracranial process. 2. Nonspecific white matter changes, likely secondary to chronic small vessel ischemic disease.
[2023-05-16 20:05] LABS: Glucose,Whole Blood 143 mg/dL (70-110)
[2023-05-16] MEDS: ESCITALOPRAM 20 MG TAB PO SCH (20:24)
--- NOTE | 2023-05-16 23:51 | CONS ---
CONSULTATION REASON FOR CONSULTATION: Regarding diabetes mellitus and other medical issues requested by surgery. HISTORY OF PRESENT ILLNESS: This 77-year-old gentleman with a past history of hypertension, hyperlipidemia, and diabetes mellitus, was not feeling well. The patient apparently had a couple of falls and the patient also had increased weakness as well as some headache. The patient has had fever, coming to the hospital, but however, the viral titers are negative. The patient was admitted for further evaluation and treatment. The CT scan of the abdomen showed some inflammation in the cecum, possibly appendicitis. The patient is started on empiric antibiotics. The patient is being closely monitored. There is no history of any rigors or chills at this time. The CT scan of the brain is not available. PAST MEDICAL HISTORY: Reviewed include diabetes mellitus and hyperlipidemia. Rest of the history and rest of the chart is also reviewed. HOME MEDICATIONS: Lantus 30 units daily, rest of the medications reviewed. ALLERGIES: Amoxicillin. FAMILY HISTORY: History of brain cancer. SOCIAL HISTORY: No history of smoking or alcohol. REVIEW OF SYSTEMS: A 14-point review is negative except as mentioned. PHYSICAL EXAMINATION: VITAL SIGNS: Pulse is 62, blood pressure 170/67, and respirations 18. HEENT: Conjunctivae normal. NECK: No jugular venous distention. CARDIOVASCULAR: S1 and S2. RESPIRATIONS: Breath sounds diminished at the bases. A few scattered rhonchi. ABDOMEN: Obese, mild diffuse discomfort. No guarding. No rigidity. No mass palpable. Bowel sounds diminished. LEGS: No edema. NERVOUS SYSTEM: Mild diffuse weakness. Nonfocal. SKIN: No ulcers or rashes. JOINTS: No active deforming arthropathy. LABORATORY DATA: Reviewed. CAT scan reviewed. Chest x-ray reviewed. Platelets are 111. ASSESSMENT: 1. Abdominal pain, fever, possibly acute appendicitis, rule out cecal mass. 2. Weakness, rule out acute stroke. 3. Thrombocytopenia. 4. Diabetes mellitus type 2. 5. Hyponatremia. 6. Hyperlipidemia. 7. History of skin cancer. 8. History of anxiety. RECOMMENDATIONS AND DISCUSSION: This is a 77-year-old gentleman, presents with multiple complex medical issues. At this time, I recommend to continue with the current medical management, symptomatic treatment. Continue the empiric antibiotics. Obtain cultures. Colonoscopy plan by Surgery. Recommend CT of the brain, neuro checks, neurovascular workup if the CT is abnormal. Otherwise, we will initiate insulin and monitor blood sugars closely. DVT prophylaxis. The prognosis is extremely guarded because of multiple complex medical issues. Proton pump inhibitors. Further recommendations to follow. MMODL / IJN: [id number] /
[2023-05-17 07:26] LABS: Glucose,Whole Blood 135 mg/dL (70-110)
[2023-05-17] MEDS: INSULIN DETEMIR (LEVEMIR) 100 UNIT/ML SYR SQ SCH (08:32)
[2023-05-17 08:49] LABS: Blood Urea Nitrogen 16.6 mg/dL (9.0-27.0); Chloride 104 mmol/L (96-109); Glucose 121 mg/dL (70-110); Potassium 4.1 mmol/L (3.5-5.5); Sodium 138 mmol/L (135-145)
[2023-05-17 08:50] LABS: Calcium 8.6 mg/dL (8.7-10.3); Carbon Dioxide 24.4 mmol/L (21.6-31.8)
[2023-05-17 09:16] LABS: HCT 36.3 % (39.6-50.0); HGB 12.7 g/dL (13.0-17.0); MCH 29.4 pg (27.0-32.0); Mean Platelet Volume 10.6 FL (9.5-12.2); NRBC Per 100 WBC 0 X 10*3/uL (0.00-0.01); Neutrophils % (M) 61 %; Platelet Count 82 X 10*3/uL (140-440); RBC 4.32 X 10*6/uL (4.40-5.60); RDW 12.4 % (11.5-14.5); WBC 3.35 X 10*3/uL (4.50-10.00)
[2023-05-17 09:23] LABS: Basophils # (M) 0.07 X 10*3/uL (0.00-0.10); Monocytes # (M) 0.13 X 10*3/uL (0.20-1.00); Neutrophils # (M) 2.04 X 10*3/uL (1.80-7.70); RBC Morphology Normal (Normal)
[2023-05-17] MEDS: PEG 3350 (236 GM/BTL) + LYTES 4,000 ML BOTTLE PO ONE (10:20)
[2023-05-17] MEDS: ENOXAPARIN 40 MG/0.4 ML SYRINGE SQ SCH (11:23)
[2023-05-17 12:32] LABS: Glucose,Whole Blood 177 mg/dL (70-110)
--- NOTE | 2023-05-17 16:15 | P.PN ---
Subjective Progress Note Date: 05/17/23 CHIEF COMPLAINT: Abdominal pain HISTORY OF PRESENT ILLNESS: Patient reports no abdominal pain. He is undergoing the GoLytely bowel prep for his colonoscopy for tomorrow. Denies any nausea or vomiting. Afebrile. WBC 3.35 Hgb 12.7 platelets 82 PHYSICAL EXAM: VITAL SIGNS: Reviewed. GENERAL: Well-developed in no acute distress. ABDOMEN: Soft. Nondistended. Nontender. NEUROLOGIC: Alert and oriented. Cranial nerves II through XII grossly intact. ASSESSMENT: 1. Abdominal pain 2. Inflammatory change at the base of the cecum noted on CT scan PLAN: -Patient scheduled for colonoscopy tomorrow with Dr. Pearson -Continue GoLytely bowel prep today with clear liquid diet -N.p.o. after midnight Physician [employer] Intern note has been reviewed by physician. Signing provider agrees with the documented findings, assessment, and plan of care. Objective - Vital Signs Vital signs: Vital Signs Temp 97.5 F L 05/17/23 14:28 Pulse 55 L 05/17/23 14:28 Resp 18 05/17/23 14:28 BP 125/71 05/17/23 14:28 Pulse Ox 96 05/17/23 14:28 FiO2 Intake & Output 05/16/23 05/17/23 05/17/23 18:59 06:59 18:59 Intake Total 590 Balance 590 Weight 97.522 kg Intake: Oral 590 Other: Voiding Method Toilet Toilet # Voids 3 - Labs CBC & Chem 7: 05/17/23 05:48 05/17/23 05:48 Labs: Abnormal Lab Results - Last 24 Hours (Table) 05/16/23 05/17/23 05/17/23 Range/Units 20:03 05:48 05:48 WBC 3.35 L (4.50-10.00) X 10*3/uL RBC 4.32 L (4.40-5.60) X 10*6/uL Hgb 12.7 L (13.0-17.0) g/dL Hct 36.3 L (39.6-50.0) % Plt Count 82 L (140-440) X 10*3/uL Monocytes # (Manual) 0.13 L (0.20-1.00) X 10*3/uL Glucose (70-110) mg/dL POC Glucose (mg/dL) 143 H (70-110) mg/dL Hemoglobin A1c 8.3 H (<=6.0) % Calcium (8.7-10.3) mg/dL 05/17/23 05/17/23 05/17/23 Range/Units 05:48 07:23 12:30 WBC (4.50-10.00) X 10*3/uL RBC (4.40-5.60) X 10*6/uL Hgb (13.0-17.0) g/dL Hct (39.6-50.0) % Plt Count (140-440) X 10*3/uL Monocytes # (Manual) (0.20-1.00) X 10*3/uL Glucose 121 H (70-110) mg/dL POC Glucose (mg/dL) 135 H 177 H (70-110) mg/dL Hemoglobin A1c (<=6.0) % Calcium 8.6 L (8.7-10.3) mg/dL Microbiology - Last 24 Hours (Table) 05/15/23 23:20 Blood Culture - Preliminary Blood 05/15/23 23:35 Blood Culture - Preliminary Blood
[2023-05-17 17:31] LABS: Glucose,Whole Blood 68 mg/dL (70-110)
[2023-05-17 18:27] LABS: Glucose,Whole Blood 112 mg/dL (70-110)
--- NOTE | 2023-05-17 19:31 | P.PN ---
Progress Note - Text Progress Note Date: 05/17/23 Hospital course Presents to the hospital with weakness and 2 minor falls. Some cough. Febrile. Some lower abdominal pain. May 16: Patient is getting bowel preparation overnight. Had more abdominal pain. Chills. No nausea vomiting. Had a mushy bowel movement this morning. Active Medications Acetaminophen (Acetaminophen Tab 325 Mg Tab) 650 mg PO Q6HR PRN PRN Reason: Mild Pain or Fever > 100.5 Last Admin: 05/16/23 06:08 Dose: 650 mg Dextrose/Water (Dextrose 50% Syringe 50 Ml) 25 ml IVP PER PROTOCOL PRN; Protocol PRN Reason: Hypoglycemia Dextrose/Water (Dextrose 50% Syringe 50 Ml) 50 ml IVP PER PROTOCOL PRN; Protocol PRN Reason: Hypoglycemia Enoxaparin Sodium (Enoxaparin 40 Mg/0.4 Ml Syringe) 40 mg SQ DAILY [facility] Last Admin: 05/17/23 11:23 Dose: Not Given Escitalopram Oxalate (Escitalopram 20 Mg Tab) 20 mg PO HS [facility] Last Admin: 05/16/23 20:24 Dose: 20 mg Hydromorphone HCl (Hydromorphone 0.5 Mg/0.5 Ml Syringe) 0.5 mg IVP Q3HR PRN PRN Reason: Moderate Pain (Scale 4 to 6) Sodium Chloride (Saline 0.9%) 1,000 mls @ 75 mls/hr IV .[id number] [facility] Last Admin: 05/17/23 17:43 Dose: Not Given Ceftriaxone Sodium 2 gm/ (Sodium Chloride) 50 mls @ 100 mls/hr IVPB Q24HR [facility]; Protocol Last Admin: 05/17/23 09:27 Dose: 100 mls/hr Insulin Aspart (Insulin Aspart (Novolog) 100 Unit/Ml Vial) 0 unit SQ ACHS [facility]; Protocol Last Admin: 05/17/23 17:43 Dose: Not Given Insulin Detemir (Insulin Detemir (Levemir) 100 Unit/Ml Syr) 30 unit SQ DAILY@0700 [facility] Last Admin: 05/17/23 08:32 Dose: 24 unit Naloxone HCl (Naloxone 0.4 Mg/Ml 1 Ml Vial) 0.2 mg IV Q2M PRN PRN Reason: Opioid Reversal Pantoprazole Sodium (Pantoprazole 40 Mg Tablet) 40 mg PO -BRKFST [facility] Last Admin: 05/17/23 09:27 Dose: 40 mg On examination: VITAL SIGNS: [98.4, 61, 12, 129 x 71, 96% room air] GENERAL APPEARANCE: Resting, not in distress HEENT: Normal external appearance of nose and ear. Oral cavity normal EYES: Pupils equal. Conjunctiva normal. NECK: JVD not raised. Mass not palpable. RESPIRATORY: Respiratory effort normal. Lungs clear to auscultation. CARDIOVASCULAR: First and second sounds normal. No edema. ABDOMEN: Soft. Liver and spleen not palpable. Tender. No guarding rigidity.. PSYCHIATRY: Alert and oriented x3. Mood and affect normal. INVESTIGATIONS, reviewed in the clinical context: May 16: White count 3.3 hemoglobin 12.7 platelets 82 sodium 138 potassium 4.[address] brain nonspecific white matter changes CT scan abdomen pelvis: Inflammatory change at the base of the cecum in the right lower quadrant. Some suspicion for underlying mass or neoplasm. Assessment and plan: -Lower abdominal pain. Inflammatory changes noted at the base of the cecum in the right lower quadrant. Mass cannot be ruled out.: Slow to respond Pending colonoscopy tomorrow IV ceftriaxone -Diabetes mellitus type 2, chronically insulin Accu-Cheks with sliding scale insulin. Decrease a.m. dose of Levemir to 20 units -Anxiety Lexapro -Hyperlipidemia N.p.o. after midnight. IV fluids. Bowel preparation for colonoscopy. Continue antibiotics.
[2023-05-17 20:00] LABS: Glucose,Whole Blood 113 mg/dL (70-110)
[2023-05-18 04:05] LABS: Glucose,Whole Blood 109 mg/dL (70-110)
[2023-05-18 07:08] LABS: Glucose,Whole Blood 106 mg/dL (70-110)
[2023-05-18 08:06] LABS: HCT 35.9 % (39.0-53.0); MCH 29.4 pg (25.0-35.0); MCHC 33.4 g/dL (31.0-37.0); Mean Platelet Volume 7.5; Platelet Count 102 k/uL (150-450); RBC 4.08 m/uL (4.30-5.90); RDW 13.2 % (11.5-15.5); WBC 3.2 k/uL (3.8-10.6)
[2023-05-18 08:18] LABS: African American GFR (CKD) >90 (>60 ml/min/1.73 sqM); Anion Gap 5 mmol/L; Blood Urea Nitrogen 12 mg/dL (9-20); Calcium 8.5 mg/dL (8.4-10.2); Carbon Dioxide 24 mmol/L (22-30); Chloride 108 mmol/L (98-107); Glucose 114 mg/dL (74-99); Non-African American GFR(CKD) 89 (>60 ml/min/1.73 sqM); Potassium 3.8 mmol/L (3.5-5.1); Sodium 137 mmol/L (137-145)
[2023-05-18] MEDS: INSULIN DETEMIR (LEVEMIR) 100 UNIT/ML SYR SQ SCH (09:08)
[2023-05-18 12:03] LABS: Glucose,Whole Blood 120 mg/dL (70-110)
[2023-05-18] MEDS ORDERED: PROPOFOL 10 MG/ML 20 ML VIAL IV ONE (14:05)
[2023-05-18] MEDS: IV FLUID CONTINUATION 1,000 ML IV ONE ×2 (14:07→14:42)
--- NOTE | 2023-05-18 16:46 | P.PCN ---
Date of Procedure: 05/18/23 Procedure(s) Performed: PREOPERATIVE DIAGNOSIS: Abnormal CAT scan findings, colitis POSTOPERATIVE DIAGNOSIS: Thickening base of cecum, possible polypoid mass PROCEDURE: Colonoscopy with biopsy ANESTHESIA: MAC SURGEON: Saad Pearson M.D. SPECIMENS: Cecal biopsy ENDOSCOPIC PROCEDURE: The patient was placed on the endoscopy table in the left decubitus position. The Olympus colonoscope was inserted into the anus and passed under direct visualization to the cecum. The patient's ileocecal valve was angled somewhat atypically. The base of the cecum was difficult to visualize it is appeared to be contracted medially beneath the ileocecal valve itself. I could not visualize the appendiceal orifice. I had a few views where I could visualize a polypoid protrusion along the medial aspect of the cecal base that was concerning for possible neoplasm. 2 cold biopsies were taken. No ulcerations were seen. This matched the location of thickening on the recent CAT scan. The remainder of the ascending transverse descending sigmoid and rectum appeared normal. There was mild diverticulosis. The prep was good. Digital rectal examination was normal. The patient was taken to the recovery room in stable condition per anesthesia guidelines. RECOMMENDATIONS: Findings discussed in detail with the patient his and also his [id number]. I also discussed this case with Dr. Figueredo. Options of exploratory laparotomy with possible colonic resection versus discharge home with outpatient review of biopsy results and subsequent determination for surgical intervention either locally or by colorectal surgery offered. They would rather hold off on operative intervention until biopsies were obtained which I think is reasonable. Will resume regular diet. May discharge home tomorrow morning if doing well and cleared by medicine. Follow-up next week.
[2023-05-18 17:21] LABS: Glucose,Whole Blood 101 mg/dL (70-110)
--- NOTE | 2023-05-18 19:05 | P.PN ---
Progress Note - Text Progress Note Date: 05/18/23 Hospital course Presents to the hospital with weakness and 2 minor falls. Some cough. Febrile. Some lower abdominal pain. May 16: Patient is getting bowel preparation overnight. Had more abdominal pain. Chills. No nausea vomiting. Had a mushy bowel movement this morning. May 17: Patient states his right lower abdominal pain has been intermittent since the beginning of the year. Denies any obvious weight loss. His Accu- Cheks have been somewhat uncontrolled over the last month anywhere from 250s to 300s. Dr. Pearson call me today after his procedure. Patient may need to be looked into the right ileocecal region, concern for malignancy. Appendicitis appears to be less likely. We discussed and we agreed to discontinue the antibiotics. Patient may be referred to colorectal surgeon after follow-up with Dr. Pearson in the office. Patient been put on a soft bland diet. Lidocaine was discussed at length with the patient and . Total time spent today over an hour with over 45 minutes of discussion. Active Medications Acetaminophen (Acetaminophen Tab 325 Mg Tab) 650 mg PO Q6HR PRN PRN Reason: Mild Pain or Fever > 100.5 Last Admin: 05/16/23 06:08 Dose: 650 mg Dextrose/Water (Dextrose 50% Syringe 50 Ml) 25 ml IVP PER PROTOCOL PRN; Prot ocol PRN Reason: Hypoglycemia Dextrose/Water (Dextrose 50% Syringe 50 Ml) 50 ml IVP PER PROTOCOL PRN; Protocol PRN Reason: Hypoglycemia Enoxaparin Sodium (Enoxaparin 40 Mg/0.4 Ml Syringe) 40 mg SQ DAILY [facility] Last Admin: 05/18/23 09:24 Dose: Not Given Escitalopram Oxalate (Escitalopram 20 Mg Tab) 20 mg PO HS [facility] Last Admin: 05/17/23 22:04 Dose: 20 mg Hydromorphone HCl (Hydromorphone 0.5 Mg/0.5 Ml Syringe) 0.5 mg IVP Q3HR PRN PRN Reason: Moderate Pain (Scale 4 to 6) Sodium Chloride (Saline 0.9%) 1,000 mls @ 75 mls/hr IV .[id number] [facility] Last Admin: 05/18/23 06:41 Dose: 75 mls/hr Insulin Aspart (Insulin Aspart (Novolog) 100 Unit/Ml Vial) 0 unit SQ ACHS [facility]; Protocol Last Admin: 05/18/23 17:33 Dose: Not Given Insulin Detemir (Insulin Detemir (Levemir) 100 Unit/Ml Syr) 20 unit SQ DAILY@0700 [facility] Last Admin: 05/18/23 09:08 Dose: Not Given Naloxone HCl (Naloxone 0.4 Mg/Ml 1 Ml Vial) 0.2 mg IV Q2M PRN PRN Reason: Opioid Reversal Pantoprazole Sodium (Pantoprazole 40 Mg Tablet) 40 mg PO AC-BRKFST [facility] Last Admin: 05/18/23 09:22 Dose: 40 mg On examination: VITAL SIGNS: Afebrile, 52, 16, 141 x 70, 98% on 2 L GENERAL APPEARANCE: Sitting up in bed, comfortable HEENT: Normal external appearance of nose and ear. Oral cavity normal. Decreased hearing EYES: Pupils equal. Conjunctiva normal. NECK: JVD not raised. Mass not palpable. RESPIRATORY: Respiratory effort normal. Lungs clear to auscultation. CARDIOVASCULAR: First and second sounds normal. No edema. ABDOMEN: Soft. Liver and spleen not palpable. Tender. No guarding rigidity.. PSYCHIATRY: Alert and oriented x3. Mood and affect normal. INVESTIGATIONS, reviewed in the clinical context: CEA: 4.3 CRP 3.6 May 17: White count 3.2 hemoglobin 12 platelets 102 potassium 3.8 creatinine 0.72 May 16: White count 3.3 hemoglobin 12.7 platelets 82 sodium 138 potassium 4.[address] brain nonspecific white matter changes CT scan abdomen pelvis: Inflammatory change at the base of the cecum in the right lower quadrant. Some suspicion for underlying mass or neoplasm. Assessment and plan: -Lower abdominal pain. Inflammatory changes noted at the base of the cecum in the right lower quadrant. Mass cannot be ruled out.: Colonoscopy: Thickening base of cecum possible polypoid mass. Patient will follow-up with Dr. Pearson in the office next week and further planning for surgery outpatient. -Diabetes mellitus type 2, chronically insulin Accu-Cheks with sliding scale insulin. Increase a.m. dose of Levemir to 26 units -Hard of hearing Uses hearing aids -Anxiety Lexapro -Hyperlipidemia Stop antibiotic. Increase Levemir. Soft bland diet. Discussed with patient . Probable discharge tomorrow.
[2023-05-18 20:09] LABS: Glucose,Whole Blood 180 mg/dL (70-110)
[2023-05-19 02:50] LABS: Glucose,Whole Blood 130 mg/dL (70-110)
[2023-05-19 07:26] LABS: Glucose,Whole Blood 148 mg/dL (70-110)
[2023-05-19 09:04] VITALS: BP 123/67; PULSE 53; RESP 18; TEMP 98.5
--- NOTE | 2023-05-19 09:24 | P.DS ---
Providers Date of admission: 05/17/23 11:10 Expected date of discharge: 05/19/23 Attending physician: Ollie Figueredo Consults: 05/17/23 16:20 Consult Physician Routine Consulting Provider: Saad Pearson Consult Reason/Comments: endoscopy Do you want consulting provider notified?: Already Contacted [facility]: Patient hospitalized with syncopal episode and vague right lower quadrant abdominal pain. CAT scan shows possible cecal mass. Colonoscopy also showed an abnormality adjacent to the ileocecal valve that appeared abnormal and contracted. Biopsies pending. Patient doing well at this time. Plan discharge with outpatient follow-up. Patient will follow up with his primary care physician to continue working on his elevated blood sugar issues. Patient Condition at Discharge: Stable Plan - Discharge Summary Discharge Rx Participant: No New Discharge Prescriptions: No Action Insulin Glargine,Hum.rec.anlog [Lantus Solostar Pen] 30 units SQ DAILY Repaglinide [Prandin] 2 mg PO AC-TID Escitalopram [Lexapro] 20 mg PO HS Discharge Medication List Repaglinide [Prandin] 2 mg PO AC-TID 09/22/21 [History] Escitalopram [Lexapro] 20 mg PO HS 05/16/23 [History] Insulin Glargine,Hum.rec.anlog [Lantus Solostar Pen] 30 units SQ DAILY 05/16/23 [History] Follow up Appointment(s)/Referral(s): Sinan Ortiz DO [Primary Care Provider] - 1-2 days
[2023-05-19] MEDS: INSULIN DETEMIR (LEVEMIR) 100 UNIT/ML SYR SQ SCH (09:53)
--- NOTE | 2023-05-19 13:59 | P.PN ---
Progress Note - Text Progress Note Date: 05/19/23 Hospital course Presents to the hospital with weakness and 2 minor falls. Some cough. Febrile. Some lower abdominal pain. May 16: Patient is getting bowel preparation overnight. Had more abdominal pain. Chills. No nausea vomiting. Had a mushy bowel movement this morning. May 17: Patient states his right lower abdominal pain has been intermittent since the beginning of the year. Denies any obvious weight loss. His Accu- Cheks have been somewhat uncontrolled over the last month anywhere from 250s to 300s. Dr. Pearson call me today after his procedure. Patient may need to be looked into the right ileocecal region, concern for malignancy. Appendicitis appears to be less likely. We discussed and we agreed to discontinue the antibiotics. Patient may be referred to colorectal surgeon after follow-up with Dr. Pearson in the office. Patient been put on a soft bland diet. Lidocaine was discussed at length with the patient and . Total time spent today over an hour with over 45 minutes of discussion. May 18: Patient had declined to take his Levemir this morning. Had a very lengthy discussion with the patient his his son and [id number]. Explained all about insulin and the glucose questions answered. Patient agreeable to take his insulin. Patient has an appointment coming up with endocrinology. Other questions answered. Tolerated breakfast. No abdominal pain. Medications: Reviewed On examination: VITAL SIGNS: 98.5, 53, 18, 123 x 67, 95% room air GENERAL APPEARANCE: Sitting up in bed, comfortable HEENT: Normal external appearance of nose and ear. Oral cavity normal. Decreased hearing EYES: Pupils equal. Conjunctiva normal. NECK: JVD not raised. Mass not palpable. RESPIRATORY: Respiratory effort normal. Lungs clear to auscultation. CARDIOVASCULAR: First and second sounds normal. No edema. ABDOMEN: Soft. Liver and spleen not palpable. Tender. No guarding rigidity.. PSYCHIATRY: Alert and oriented x3. Mood and affect normal. INVESTIGATIONS, reviewed in the clinical context: CEA: 4.3 CRP 3.6 May 17: White count 3.2 hemoglobin 12 platelets 102 potassium 3.8 creatinine 0.72 May 16: White count 3.3 hemoglobin 12.7 platelets 82 sodium 138 potassium 4.[address] brain nonspecific white matter changes CT scan abdomen pelvis: Inflammatory change at the base of the cecum in the right lower quadrant. Some suspicion for underlying mass or neoplasm. Assessment and plan: -Lower abdominal pain. Inflammatory changes noted at the base of the cecum in the right lower quadrant. Mass cannot be ruled out.: Colonoscopy: Thickening base of cecum possible polypoid mass. Patient will follow-up with Dr. Pearson in the office next week and further planning for surgery outpatient. -Diabetes mellitus type 2, chronically insulin Accu-Cheks with sliding scale insulin. Lantus 30 units in the morning Patient is an outpatient endocrinology appointment -Hard of hearing Uses hearing aids -Anxiety Lexapro -Hyperlipidemia -Mild pancytopenia Reviewed labs and CBC outpatient. May need further workup as outpatient depending on labs. Questions answered. Follow-up with PCP, Dr. Pearson, endocrinology. Copy of dictation being sent to Dr. Ortiz
== END 2023-05-19 10:50 | disposition home or self-care (01) | DRG 394 ==
LOC: EC 19:44 → INTOOBSV 22:53 → 5NMEDONC 22:53 → OBSVTOIN 05-17 11:10
PROVIDERS: ADMIT Hospitalist; ATTEND Hospitalist
PROC: 0DBH8ZX Excision of Cecum, Via Natural or Artificial Opening Endoscopic, Diagnostic (ICD-10-PCS; principal; 2023-05-18 07:30)
DX: D12.0 Benign neoplasm of cecum (principal); D61.818 Other pancytopenia; E87.1 Hypo-osmolality and hyponatremia; E11.9 Type 2 diabetes mellitus without complications; Z79.4 Long term (current) use of insulin; E78.5 Hyperlipidemia, unspecified; G47.33 Obstructive sleep apnea (adult) (pediatric); F41.9 Anxiety disorder, unspecified; I10 Essential (primary) hypertension; K52.9 Noninfective gastroenteritis and colitis, unspecified; Z85.828 Personal history of other malignant neoplasm of skin; Z11.52 Encounter for screening for COVID-19; Z79.899 Other long term (current) drug therapy; Z88.0 Allergy status to penicillin
CPT/HCPCS: 36415; 45380; 70450; 71046; 74177; 80048; 80053; 81003; 82378; 83036; 83605; 84145; 85025; 85027; 85652; 86140; 87040; 87636; 88305; 93005; 96361; 96365; 96366; 96367; 96372; 99285

== ENCOUNTER → 2024-05-01 | Outpatient (CLI) | payer MEDICARE ==
--- NOTE | 2024-05-01 15:31 | US ---
EXAMINATION TYPE: US carotid duplex BILAT DATE OF EXAM: 05/01/2024 COMPARISON: NONE CLINICAL INDICATION: Male, 78 years old with history of R55 SYNCOPE; dizziness Additional History: R55 Syncope TECHNIQUE: Grayscale, color Doppler and spectral Doppler evaluation of the bilateral carotid systems and vertebral arteries. Indirect Doppler criteria was utilized. FINDINGS: EXAM MEASUREMENTS: RIGHT: Peak Systolic Velocity (PSV) cm/sec ----- Right CCA: 70.1 ----- Right ICA: 103 ----- Right ECA: 88.3 ICA/CCA ratio: 1.2 RIGHT: End Diastole cm/sec ----- Right CCA: 12.4 ----- Right ICA: 21.4 ----- Right ECA: 5.6 LEFT: Peak Systolic Velocity (PSV) cm/sec ----- Left CCA: 72.9 ----- Left ICA: 64.5 ----- Left ECA: 90.7 ICA/CCA ratio: 0.9 LEFT: End Diastole cm/sec ----- Left CCA: 13.6 ----- Left ICA: 20.2 ----- Left ECA: 6.6 VERTEBRALS (direction of flow): Right Vertebral: Antegrade Left Vertebral: Antegrade Rhythm: Normal BALLISTIC TECHNICIAN NOTES: bilateral carotid bulb plaque RT>LT Color Doppler imaging shows patency with blood flow throughout the carotid artery. Spectral waveforms are within normal limits. IMPRESSION: Right: Less than 50% stenosis of the carotid bifurcation. Left: Less than 50% stenosis of the carotid bifurcation. Criteria for Assigning % of Stenosis / Diameter reduction (Estimation based on the indirect measurements of the internal carotid artery velocities (ICA PSV). 1. Normal (no stenosis)=ICA PSV < 125 cm/s: ratio < 2.0: ICA EDV<40 cm/s. 2. Less than 50% stenosis=ICA PSV < 125 cm/s: ratio < 2.0: ICA EDV<40 cm/s. 3. 50 to 69% stenosis=ICA PSV of 125 to 230 cm/s: ration 2.0 ? 4.0: ICA EDV 40-100 cm/s. 4. Greater than 70% stenosis to near occlusion= ICA PSV > 230 cm/s: ratio > 4.0: ICA EDV > 100 cm/s. 5. Near occlusion= ICA PSV velocities may be low or undetectable: variable ratio and ICA EDV. 6. Total occlusion=unable to detect flow. [facility], , 05/01/2024 3:29 PM
== END | disposition home or self-care (01) ==
LOC: RADUSWWP 14:18
PROVIDERS: ATTEND Psychiatry & Neurology Neurology
DX: I65.23 Occlusion and stenosis of bilateral carotid arteries (principal); R55 Syncope and collapse
CPT/HCPCS: 93880

== ENCOUNTER 2024-05-20 06:36 | Day surgery (SDC) | payer MEDICARE ==
[2024-05-16 13:29] VITALS: BMI 27.0
[2024-05-20 07:23] LABS: Glucose,Whole Blood 124 mg/dL (70-110)
[2024-05-20] MEDS: SODIUM CHLORIDE 0.9% 1,000 ML IV SCH (07:27)
[2024-05-20] MEDS: IV FLUID CONTINUATION 1,000 ML IV ONE (07:28)
[2024-05-20 07:35] VITALS: RESP 16; TEMP 97.6
[2024-05-20 08:40] VITALS: BP 114/69; PULSE 60
--- NOTE | 2024-05-22 11:20 | P.EPPROC ---
- EP Procedure Note Electrophysiology Procedure Note: Indication: Recurrent presyncope twelve-lead EKG shows sinus mechanism 55 beats a minute normal OK narrow QRS normal ST segments Tilt table test per protocol Baseline blood pressure 122/68 mmHg Baseline heart rate 55 beats a minute Patient was tilted upright abdomen angle of 70 degrees per protocol Immediate drop in blood pressure to 96/57 mmHg. Thereafter the blood pressure remained between 95 to 100 mmHg No change in heart rate Patient felt tired with some blurred vision When he was laid supine his blood pressure improved 230/70 mmHg Impression normal twelve-lead EKG at baseline Orthostatic hypotension syndrome/dysautonomia
== END 2024-05-20 08:52 | disposition home or self-care (01) ==
LOC: CATHEP 06:36
PROVIDERS: ATTEND Internal Medicine Clinical Cardiac Electrophysiology
DX: R55 Syncope and collapse (principal); E11.49 Type 2 diabetes mellitus with other diabetic neurological complication; E78.00 Pure hypercholesterolemia, unspecified; I77.810 Thoracic aortic ectasia; G47.30 Sleep apnea, unspecified; N40.0 Benign prostatic hyperplasia without lower urinary tract symptoms; D69.6 Thrombocytopenia, unspecified; G44.219 Episodic tension-type headache, not intractable; E55.9 Vitamin D deficiency, unspecified; K21.9 Gastro-esophageal reflux disease without esophagitis; F41.1 Generalized anxiety disorder; F32.9 Major depressive disorder, single episode, unspecified; H90.5 Unspecified sensorineural hearing loss; R42 Dizziness and giddiness; H53.8 Other visual disturbances; Z79.4 Long term (current) use of insulin; Z79.84 Long term (current) use of oral hypoglycemic drugs; Z79.899 Other long term (current) drug therapy; Z88.0 Allergy status to penicillin; Z88.8 Allergy status to other drugs, medicaments and biological substances
CPT/HCPCS: 93660

== ENCOUNTER → 2024-06-06 | Outpatient (CLI) | payer MEDICARE | END | disposition home or self-care (01) | LOC: RADMRIMAIN 14:23 | PROVIDERS: ATTEND Psychiatry & Neurology Neurology | DX: Z53.9 Procedure and treatment not carried out, unspecified reason (principal) ==